=== PATIENT | male | born 1940 | race Caucasian/White ===

== ENCOUNTER → 2024-01-07 16:21 | Outpatient (REF) | payer MEDICARE, OTHER, SELFPAY ==
[2024-01-07 19:49] LABS: PSA, Total - Diagnostic < 0.06 ng/ml (0.0-4.0)
[2024-01-07 19:52] LABS: Testosterone, Total 9.3 ng/dl (72-623)
== END ==
LOC: REG 16:21
PROVIDERS: ATTENDING PHYSICIAN Specialist; FAMILY PHYSICIAN Family Medicine
DX: C61 Malignant neoplasm of prostate (principal)
CPT/HCPCS: 36415; 84153; 84403

== ENCOUNTER 2024-02-24 06:05 | Emergency (ER) | payer OTHER, SELFPAY ==
[2024-02-24 06:09] VITALS: BP 170/84; BMI 24.3
[2024-02-24 06:25] LABS: % Immature Granulocytes 0.3 % (0-0.5); % Lymphocytes 23.7 % (20.5-51.1); % Monocytes 12.7 % (1.7-9.3); % Neutrophils 57.3 % (42.2-75.2); Absolute Basophils 0.1 10^3/uL (0-0.2); Absolute Eosinophils 0.3 10^3/uL (0-0.7); Absolute Lymphocytes 1.4 10^3/uL (1.2-3.4); Absolute Monocytes 0.8 10^3/uL (0.1-0.6); Absolute Neutrophils 3.4 10^3/uL (1.4-6.5); Hematocrit 35.2 % (39.0-52.0); Hemoglobin 12.2 g/dL (13.0-18.0); Mean Corp Hgb Conc. 34.7 g/dL (33.0-37.0); Mean Corpuscular Hgb 32.4 pg (27.0-31.0); Mean Corpuscular Volume 93.4 fL (80.0-94.0); Mean Platelet Volume 10.3 fL (7.4-10.4); Nucleated Red Blood Cells % 0 % (-); Platelet Count 163 10^3/uL (130-400); Red Blood Cell Count 3.77 10^6/uL (4.70-6.10); Red Cell Dist. Width 13.5 % (11.5-14.5)
[2024-02-24 06:43] LABS: ALT (SGPT) 12 U/L (0-50); AST (SGOT) 19 U/L (17-59); Albumin 3.8 g/dl (3.5-5.0); Alkaline Phosphatase 94 U/L (38-126); Blood Urea Nitrogen 24 mg/dl (9-20); Calcium 9.6 mg/dl (8.4-10.2); Carbon Dioxide 30 mmol/L (22-30); Chloride 105 mmol/L (98-107); Estimated Creatinine Clearance 43 ml/min; Glucose 99 mg/dl (70-99); Potassium 4.5 mmol/L (3.5-5.1); Sodium 138 mmol/L (135-145); Total Bilirubin 0.6 mg/dl (0.2-1.3); Total Protein 5.6 g/dl (6.3-8.2); eGFR > 60.00
[2024-02-24 07:00] VITALS: BP 171/79
--- NOTE | 2024-02-24 07:28 | ED.GENMED ---
History of Present Illness
General
Chief Complaint: Weakness
Source: patient
Exam Limitations: none
Time Seen by Provider: 02/24/24 07:03
Travel History
Have you had any contact with someone who has COVID-19?: No
Do you have any symptoms of coronavirus? Fever > 100 degrees, chills, cough, shortness of breath, sore throat, loss of taste or smell, muscle aches, or headache?: No
History of Present Illness
History of Present Illness:
84-year-old male presents via EMS from home. He states his called because patient was unable to get out of bed this morning. He has a history of non-Hodgkin's lymphoma, Waldenstr�m's macroglobulinemia, A-fib, sick sinus syndrome with
pacemaker on Eliquis. Patient has very vague history no specific complaints. He states he does not feel as bad at the time of my exam. He notes an ongoing swollen and ecchymotic left upper arm that he has been evaluated by. He states he had an
ultrasound of his arm. He states this is not a new issue. He denies associated chest pain or shortness of breath. Patient has hard time describing how he is feeling in general.
Past History
Past History
ED Past Medical History: Arrthythmia (afib), GERD, HTN, Other (nonhodgkins lymphoma) and Other (diverticulitis)
ED Past Surgical History: Cardiac, Orthopedic and Tonsilectomy
Social History
Tobacco: Non-smoker
Personal:
Living: with family
Phy Exam
Physical Exam
Physical Exam:
General: Well-appearing male no acute respiratory distress
HEENT: Normocephalic atraumatic
Heart: Regular rate and rhythm
Lungs: Clear no wheeze
Abdomen soft nontender nondistended
Extremities: Significant edema and discoloration of the left arm. He has a 2+ radial pulse to the left wrist
Neurologic: Good sensation left arm
Skin: Abrasion noted to the dorsal aspect of the right foot with mild surrounding erythema. There is mild soft tissue swelling noted of the dorsal right foot.
Course
Orders/Labs/Results
Orders:
Orders
02/24/24 06:15
Complete Blood Count/With Diff Urgent
Comprehensive Metabolic Panel Urgent
02/24/24 07:32
Electrocardiogram (*1) Urgent
Reason for Study: Fatigue / Weakness
EKG- Treatment ONCE
02/24/24 07:54
Interrogate Pacemaker- Treatment ONCE
02/24/24 08:16
Urinalysis Reflex To Culture Urgent
Date Specimen was Collected: 02/24/24
Time Specimen was Collected: 08:14
Abnormal Lab Results
02/24/24
06:15
RBC 3.77 L 10^6/uL
(4.70-6.10)
Hgb 12.2 L g/dL
(13.0-18.0)
Hct 35.2 L %
(39.0-52.0)
MCH 32.4 H pg
(27.0-31.0)
Absolute Monos (auto) 0.8 H 10^3/uL
(0.1-0.6)
Monocytes % 12.7 H %
(1.7-9.3)
BUN 24 H mg/dl
(9-20)
Total Protein 5.6 L g/dl
(6.3-8.2)
02/24/24 06:15
02/24/24 06:15
Vital Signs
Initial and Last Documented VS:
Initial Vital Signs
Temp Pulse Resp BP Pulse Ox
98.1 F 78 16 170/84 98
02/24/24 06:09 02/24/24 06:09 02/24/24 06:09 02/24/24 06:09 02/24/24 06:09
Last Documented Vital Signs
Temp Pulse Resp BP Pulse Ox
98.1 F 69 15 131/99 100
02/24/24 06:09 02/24/24 08:23 02/24/24 08:23 02/24/24 08:00 02/24/24 08:15
MDM/Problems Addressed
Differential Diagnosis Includes:
Patient presents with vague complaints of just not feeling well this morning. No specific complaint on my exam. He states he feels okay. He states if he felt like this at home he would not of come to the hospital. Discussed with the patient is
significantly swollen and discolored but the left arm and offered ultrasound however he he states he already had 1 this was negative. He has been on Eliquis. Basic labs pending. Will check urinalysis and EKG.
*Critical Care Note
Total Time (30-74mins, 75-104mins- exclusive of procedures): Not Applicable
Update Note
Update Note:
Workup unremarkable here with labs without significant finding. Urinalysis negative. Did interrogate pacemaker which showed 100% atrial fibrillation but is rate controlled. Family now in the room. The patient's son accompanies him. I also spoke
with the patient's son over the telephone who is a physician in [place]. They did relay that the patient, their father, is getting more and more confused as he is his . They seem to get into the cycles at home where something seems wrong to
them and they called 911. They are in discussion with each other about getting the parents please. At this time no indication medically for admission to hospital. Family and patient in agreement with discharge home. Stable for discharge
ED Attending Note
-
Portions of this chart may have been created with voice recognition software.� Occasional wrong word or��sound alike� substitutions may have occurred due to the inherent limitations of voice recognition software.
Discharge Plan
Departure
Patient Disposition: Home (Routine Discharge)
Date of Disposition: 02/24/24
Time of Disposition: 09:19
Patient with high blood pressure during this ER visit?: No
Discharge Problem:
Weakness
Instructions: Generalized Weakness (DC)
Prescriptions:
No Action
famotidine 40 MG tablet
40 mg PO DAILY
tamsulosin 0.4 MG capsule
0.4 mg PO DAILY
metoprolol succinate 25 MG tablet extended release 24 hr
25 mg PO DAILY
multivitamin 1 EACH tablet
1 ea PO DAILY
digoxin [Digitek] 0.25 MG tablet
0.125 mg PO DAILY
Eliquis 5 MG tablet
5 mg PO BID Qty: 0 0RF
Hold Instructions: Resume on 05/22/22. Until hematuria resolves
acetaminophen 500 mg Tablet
1,000 mg PO Q6H PRN (Reason: pain)
Brukinsa 80 mg Capsule
160 mg PO BID
Hold Instructions: Resume on 05/22/22. Until hematuria resolves
phenazopyridine 200 mg tablet
200 mg PO TID 7 Days Qty: 30 0RF
Referrals:
UNKNOWN - PT NOT,INTERVIEWE [Family Provider] -
Activity Restrictions/Additional Instructions:
Please return here for worsening symptoms
Interventions
Interventions:
*Risk Screen - Suicide Last Done: 02/24/24 06:09
*General Assessment Last Done: 02/24/24 06:09
*Neglect/Abuse Screening Last Done: 02/24/24 06:09
ED- Fall Risk Assessment Last Done: 02/24/24 07:51
*ED COVID-19 Vaccine History Last Done: 02/24/24 06:09
ED- Cardiac Assessment Last Done: 02/24/24 06:19
ED- Neurological Assessment Last Done: 02/24/24 06:19
ED- Pulmonary Assessment Last Done: 02/24/24 06:19
Discharge Date and Time
Print Language: HUNGARIAN
[2024-02-24 08:00] VITALS: BP 131/99
[2024-02-24 08:30] LABS: Urine Albumin Negative (Neg - Trace); Urine Bilirubin Negative (Negative); Urine Character Clear (Clear); Urine Color Yellow; Urine Glucose Negative (Negative); Urine Ketone Negative (Negative); Urine Leukocyte Negative (Negative); Urine Nitrite Negative (Negative); Urine Occult Blood Negative (Negative); Urine Specific Gravity 1.015 (<1.030); Urine Urobilinogen Negative (Neg - 1+)
== END 2024-02-24 09:48 | disposition home or self-care (01) ==
LOC: EMR 06:05
PROVIDERS: Physician Assistant; EMERGENCY PHYSICIAN Emergency Medicine
DX: R53.1 Weakness (principal); S90.811A Abrasion, right foot, initial encounter; R53.83 Other fatigue; L98.8 Other specified disorders of the skin and subcutaneous tissue; R60.0 Localized edema; R58 Hemorrhage, not elsewhere classified; X58.XXXA Exposure to other specified factors, initial encounter; I48.91 Unspecified atrial fibrillation; I49.5 Sick sinus syndrome; I10 Essential (primary) hypertension; K21.9 Gastro-esophageal reflux disease without esophagitis; C88.0 Waldenstrom macroglobulinemia; K57.92 Diverticulitis of intestine, part unspecified, without perforation or abscess without bleeding; Z95.0 Presence of cardiac pacemaker; Z85.72 Personal history of non-Hodgkin lymphomas; Z79.01 Long term (current) use of anticoagulants
CPT/HCPCS: 99283; 93288; 80053; 81003; 85025; 93005

== ENCOUNTER 2024-04-14 13:15 | Emergency (ER) | payer OTHER, SELFPAY ==
[2024-04-14 13:19] VITALS: BP 148/97
--- NOTE | 2024-04-14 15:21 | ED.GENMED ---
History of Present Illness
General
Chief Complaint: Fall
Time Seen by Provider: 04/14/24 13:37
History of Present Illness
History of Present Illness:
84-year-old male with history of dementia presenting from nursing facility for fall. Fall was allegedly unwitnessed. Patient is limited historian, however reports that he fell out of bed. He does not believe that he hit his head. He denies
prodromal symptoms such as dizziness or chest pain. He notes that he has fallen in the past. He reports some pain in the buttock region, however has been able to ambulate. Denies any chest pain or difficulty breathing. Denies abdominal pain.
Denies any headache or neck pain. Denies hip pain. Denies additional acute medical complaints.
Past History
Past History
ED Past Medical History: Arrthythmia (afib), GERD, HTN, Other (nonhodgkins lymphoma) and Other (diverticulitis)
ED Past Surgical History: Cardiac, Orthopedic and Tonsilectomy
Social History
Tobacco: Non-smoker
Personal:
Living: with family
Phy Exam
Physical Exam
Physical Exam:
General: Well-appearing, no clinical signs of dehydration, nontoxic and in no acute distress
HEENT: protecting airway
Head: No signs of head trauma
Neck: appears supple, no tenderness to the cervical spine
CV: Normal heart rate, regular rhythm, no evidence of cyanosis
Resp: No accessory muscle use, no increased work of breathing, lungs clear to auscultation bilaterally
Abd: Soft and non-distended, no tenderness to palpation, normal bowel sounds
Extremities: No deformities, no swelling, no erythema, pulses and sensation intact. No tenderness to midline spine. Pelvis stable
Neuro: alert, no focal neurologic deficit
: deferred
Rectal: deferred
Psych: Normal affect
Skin: Intact
Course
Orders/Labs/Results
Orders:
Orders
04/14/24 14:09
CT Cervical Spine W/o Iv Contr Urgent
Comment:
Reason For Exam: unwitnessed fall
CT Head W/o Iv Contrast Urgent
Comment:
Reason For Exam: fall on thinner
Pelvis, 1 or 2 Views CR [CR Pelvis - 1 Or 2 Views ] Urgent
Comment:
Reason For Exam: fall, buttock pain
Vital Signs
Initial and Last Documented VS:
Initial Vital Signs
Temp Pulse Resp BP Pulse Ox
98.8 F 96 18 148/97 98
04/14/24 13:19 04/14/24 13:19 04/14/24 13:19 04/14/24 13:19 04/14/24 13:19
Last Documented Vital Signs
Temp Pulse Resp BP Pulse Ox
98.8 F 96 18 148/97 98
04/14/24 13:19 04/14/24 13:19 04/14/24 13:19 04/14/24 13:19 04/14/24 13:19
MDM/Problems Addressed
MDM/Problems Addressed:
84-year-old male with history of dementia and A-fib with anticoagulation on Eliquis presenting after an unwitnessed fall. Vital signs on arrival are normal.
On exam, patient well-appearing, no acute distress or discomfort. Patient reports some buttock pain, otherwise no acute complaints. He reports that he fell out of bed, otherwise limited historian. Denies any prodromal or syncopal symptoms.
Suspect mechanical in nature. No signs of trauma. Benign cardiac, pulmonary, abdominal exam. Pelvis is stable, moving all extremities equally. Given anticoagulation status, will screen with CT brain and C-spine and pelvis x-ray.
*Critical Care Note
Total Time (30-74mins, 75-104mins- exclusive of procedures): Not Applicable
ED Attending Note
-
Portions of this chart may have been created with voice recognition software.� Occasional wrong word or��sound alike� substitutions may have occurred due to the inherent limitations of voice recognition software.
Discharge Plan
Departure
Prescriptions:
No Action
famotidine 40 MG tablet
40 mg PO DAILY
tamsulosin 0.4 MG capsule
0.4 mg PO DAILY
metoprolol succinate 25 MG tablet extended release 24 hr
25 mg PO DAILY
multivitamin 1 EACH tablet
1 ea PO DAILY
digoxin [Digitek] 0.25 MG tablet
0.125 mg PO DAILY
Eliquis 5 MG tablet
5 mg PO BID Qty: 0 0RF
acetaminophen 500 mg Tablet
1,000 mg PO Q6H PRN (Reason: pain)
Brukinsa 80 mg Capsule
160 mg PO BID
phenazopyridine 200 mg tablet
200 mg PO TID 7 Days Qty: 30 0RF
Referrals:
Mariah Shin MD [Family Provider] -
Interventions
Interventions:
*Risk Screen - Suicide Last Done: 04/14/24 13:19
*General Assessment Last Done: 04/14/24 13:19
*Neglect/Abuse Screening Last Done: 04/14/24 13:19
*ED COVID-19 Vaccine History Last Done: 04/14/24 14:09
ED-Musculoskeletal Assessment Last Done: 04/14/24 14:03
ED- Neurological Assessment Last Done: 04/14/24 14:03
ED-Skin Assessment Last Done: 04/14/24 14:03
Discharge Date and Time
Print Language: CROATIAN
== END 2024-04-14 17:56 | disposition home or self-care (01) ==
LOC: EMR 13:15
PROVIDERS: EMERGENCY PHYSICIAN Student in an Organized Health Care Education/Training Program; FAMILY PHYSICIAN Family Medicine
DX: S39.92XA Unspecified injury of lower back, initial encounter (principal); M54.50 Low back pain, unspecified; W06.XXXA Fall from bed, initial encounter; Y92.89 Other specified places as the place of occurrence of the external cause; F03.90 Unspecified dementia, unspecified severity, without behavioral disturbance, psychotic disturbance, mood disturbance, and anxiety; I48.91 Unspecified atrial fibrillation; K21.9 Gastro-esophageal reflux disease without esophagitis; I10 Essential (primary) hypertension; Z79.01 Long term (current) use of anticoagulants; Z85.72 Personal history of non-Hodgkin lymphomas; Z91.81 History of falling
CPT/HCPCS: 99284; 70450; 72125; 72170

== ENCOUNTER 2024-04-21 08:26 | Emergency (ER) | payer OTHER, SELFPAY ==
[2024-04-21 08:29] VITALS: BP 145/93
--- NOTE | 2024-04-21 08:46 | ED.GENMED ---
History of Present Illness
General
Chief Complaint: Fall
Source: patient and ambulance crew
Time Seen by Provider: 04/21/24 08:28
History of Present Illness
History of Present Illness:
84-year-old male with past medical history of memory impairment, atrial fibrillation, hypertension, hyperlipidemia presenting to the ER from [facility] after patient was found lying on the ground during a well check. Patient was reportedly
fine at 5 AM during first wellness check but at 815 was when he was found on the ground. Patient is unable to give much history about the fall secondary to his baseline mental status. He has no other concerns at this time. Of note, patient was
seen in the ER for similar just 1 week ago.
Past History
Past History
ED Past Medical History: Arrthythmia (afib), GERD, HTN, Other (nonhodgkins lymphoma) and Other (diverticulitis)
ED Past Surgical History: Cardiac, Orthopedic and Tonsilectomy
Social History
Tobacco: Non-smoker
Alcohol: None
Drug: None
Personal:
Living: assisted
Review of Systems
Review of Systems
All Other Systems: ROS reviewed and negative except as documented in HPI and ROS
Phy Exam
Physical Exam
Physical Exam:
GENERAL: Alert , in no apparent distress
HEAD: NCAT
EYE: conjunctiva clear
NECK: Supple
ENT: o/p clr, mmm.
LUNGS: Clear breath sounds bilaterally, no acute respiratory distress, no wheezes/rales/rhonchi
NEUROLOGICAL: Alert and oriented
SKIN: Warm and dry, skin intact.
MUSCULOSKELETAL: well perfused. edema to left upper extremity is baseline per EMS
PSYCH: Normal and appropriate interaction.
Scores
Heart Failure Risk
Heart Failure Risk Score: Not Applicable
Heart Score for Chest Pain Patients
STEMI patient?: Not applicable
Withdrawal Assessment of Alcohol
Withdrawal Assessment Completed?: Not applicable
Course
Orders/Labs/Results
Orders:
Orders
04/21/24 08:29
CT Head W/o Iv Contrast Urgent
Comment:
Reason For Exam: fall, eliquis, dementia
Vital Signs
Initial and Last Documented VS:
Initial Vital Signs
Temp Resp
98.7 F 18
04/21/24 08:27 04/21/24 08:27
Last Documented Vital Signs
Temp Pulse Resp BP Pulse Ox
98.7 F 91 18 136/83 94
04/21/24 08:27 04/21/24 08:29 04/21/24 08:27 04/21/24 09:00 04/21/24 09:15
MDM/Problems Addressed
Differential Diagnosis Includes:
Mechanical trip and fall, intracranial bleeding, minor head injury
MDM/Problems Addressed:
84-year-old male with past medical history of dementia presenting the emergency department for evaluation after an unwitnessed fall, found on the ground at his memory care unit. Seen in the ER for similar 1 week ago. Patient is anticoagulated on
Eliquis. Will order head CT for further evaluation. Patient is otherwise resting comfortably and in no acute distress.
Chronic conditions affecting care: Arrhythmia
*Radiology
Radiology exam reviewed: radiology read reviewed
*Pulse Oximetry
Patient hypoxic: no
*Critical Care Note
Total Time (30-74mins, 75-104mins- exclusive of procedures): Not Applicable
Data Reviewed
Review of Other/Old Records Reveals: Records and Radiology Studies
Source: records and ambulance crew
Patient Management
Escalation/DeEscalation of care consider admission/obs:
Patient's head CT shows the following:
IMPRESSION:
1. 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
2. Severe white matter leukoaraiosis in both cerebral hemispheres.
3. Mild to moderate diffuse cerebral and cerebellar volume loss.
4. SEVERE ACUTE on CHRONIC LEFT SPHENOID SINUSITIS.
Patient remains hemodynamically stable in no acute distress. He is stable for discharge back to his assisted. Will arrange for transport service
ED Attending Note
-
Portions of this chart may have been created with voice recognition software.� Occasional wrong word or��sound alike� substitutions may have occurred due to the inherent limitations of voice recognition software.
Discharge Plan
Departure
Patient Disposition: Penitentiary/SNF
Date of Disposition: 04/21/24
Time of Disposition: 10:13
Discharge Problem:
Accidental fall
Instructions: Preventing falls in adults
Prescriptions:
No Action
famotidine 40 MG tablet
40 mg PO DAILY
tamsulosin 0.4 MG capsule
0.4 mg PO DAILY
metoprolol succinate 25 MG tablet extended release 24 hr
25 mg PO DAILY
multivitamin 1 EACH tablet
1 ea PO DAILY
digoxin [Digitek] 0.25 MG tablet
0.125 mg PO DAILY
Eliquis 5 MG tablet
5 mg PO BID Qty: 0 0RF
acetaminophen 500 mg Tablet
1,000 mg PO Q6H PRN (Reason: pain)
Brukinsa 80 mg Capsule
160 mg PO BID
phenazopyridine 200 mg tablet
200 mg PO TID 7 Days Qty: 30 0RF
Referrals:
Mariah Shin MD [Family Provider] -
Interventions
Interventions:
ED-Musculoskeletal Assessment Last Done: 04/21/24 09:38
ED- Neurological Assessment Last Done: 04/21/24 09:38
ED-Skin Assessment Last Done: 04/21/24 09:38
Discharge Date and Time
Print Language: TURKISH
[2024-04-21 09:00] VITALS: BP 136/83
== END 2024-04-21 12:01 ==
LOC: EMR 08:26
PROVIDERS: EMERGENCY PHYSICIAN Student in an Organized Health Care Education/Training Program; FAMILY PHYSICIAN Family Medicine
DX: S09.90XA Unspecified injury of head, initial encounter (principal); W19.XXXA Unspecified fall, initial encounter; G93.89 Other specified disorders of brain; J32.3 Chronic sphenoidal sinusitis; F03.90 Unspecified dementia, unspecified severity, without behavioral disturbance, psychotic disturbance, mood disturbance, and anxiety; I10 Essential (primary) hypertension; E78.5 Hyperlipidemia, unspecified; I48.91 Unspecified atrial fibrillation; K57.92 Diverticulitis of intestine, part unspecified, without perforation or abscess without bleeding; K21.9 Gastro-esophageal reflux disease without esophagitis; Z79.01 Long term (current) use of anticoagulants; Z85.72 Personal history of non-Hodgkin lymphomas
CPT/HCPCS: 99284; 70450

== ENCOUNTER 2024-04-29 21:35 | Inpatient (IN) | payer OTHER, SELFPAY ==
[2024-04-29] VITALS (8 sets, daily range): BP systolic 145–156; BP diastolic 78–94
--- NOTE | 2024-04-29 18:17 | ED.GENMED ---
History of Present Illness
General
Chief Complaint: Change in Mental Status
Source: ambulance crew
Exam Limitations: altered mental status
Time Seen by Provider: 04/29/24 18:07
History of Present Illness
History of Present Illness:
84yoM with a history of atrial fibrillation on Eliquis, Waldenstrom macroglobulemia, hypertension, hyperlipidemia, sick sinus syndrome s/p pacemaker presenting via EMS from [facility] for evaluation of altered mental status. Patient is
confused on arrival and is unable to provide any meaningful history. History is provided by EMS as well as nurse Cam at [place]. Patient entered [facility] on 04/09/24. He was able to ambulate the first two days after entering the facility
but has been having difficulty with ambulating since. He has been seen twice in the ED this month for falls. He started to develop a cough last week. He had a CXR done on 04/25/24 which showed 'Significant right upper lobe pneumonia and left lower
lobe pleural-parenchymal disease.' Augmentin and doxycycline were ordered today to be started tomorrow. Per half-way staff, he started to become very confused and was not acting himself starting today. Patient is typically able to hold a
conversation and remembers the code to visit his in the memory care unit. Today, patient seemed lethargic and was not talking much. Patient states 'guys are following me' but is unable to provide any further details.
Past History
Past History
ED Past Medical History: Arrthythmia (afib), GERD, HTN, Other (nonhodgkins lymphoma) and Other (diverticulitis)
ED Past Surgical History: Cardiac, Orthopedic and Tonsilectomy
Social History
Tobacco: Non-smoker
Alcohol: None
Drug: None
Personal:
Living: half-way
Phy Exam
Physical Exam
Physical Exam:
Patient fatigued, non-toxic
General Physical Exam
General Skin: warm and dry
General Habitus: elderly and frail
Cardiovascular Exam
Cardiovascular Exam: regular rate/rhythm
Pulmonary Exam
Pulmonary Exam: no respiratory distress and other (Rhonchi noted with bibasilar rales. +Wet cough. Pulmonary effort is normal)
Gastrointestinal Exam
Gastrointestinal Exam: non tender, soft and non distended
Neurological Exam
Neurological Exam: other (Oriented to person. Able to state he was in an ambulance. Unable to state the year. )
Musculoskeletal Exam
Musculoskeletal Exam: other (L arm lymphedema noted)
Skin Exam
Skin Exam: normal color and warm/dry
Course
Orders/Labs/Results
Orders:
Orders
04/29/24 18:13
Electrocardiogram (*1) Urgent
Reason for Study: Shortness of Breath
CXR2 [CR Chest - 2 Views ] Urgent
Comment:
Reason For Exam: PNA dx, shortness of breath, hypoxia
04/29/24 18:14
CT Head W/o Iv Contrast Urgent
Comment:
Reason For Exam: change in mental status
EKG- Treatment ONCE
04/29/24 18:18
COVID-19 Antigen Urgent
Source: Nasal Swab
Complete Blood Count/With Diff Urgent
Comprehensive Metabolic Panel Urgent
Lactate Level [Lactic Acid] Urgent
Troponin I Urgent
Influenza A+B Rapid Molecular Urgent
RITESH Source: Nasal Swab
Specimen Description:
04/29/24 18:23
Urinalysis Reflex To Culture Urgent
04/29/24 18:45
Add On- LAB Urgent
Tests Added?: Procalcitonin
04/29/24 19:07
Procalcitonin Urgent
PCT Algorithmm Indication: Respiratory
04/29/24 19:32
CefTRIAXone [Rocephin] 2,000 mg IV NOW STA
04/29/24 19:38
Sterile Water [Sterile Water For Injection] [address] ml .[address]
04/29/24 21:03
Legionella Urinary Antigen Urgent
RITESH Source: Urine
Specimen Description:
MRSA Screen Routine
RITESH Source: Nose
Specimen Description:
Sputum Culture [Respiratory Culture/Gram Stain] Urgent
RITESH Source: Sputum
Specimen Description:
Strep pneumoniae Antigen Urgent
RITESH Source: Urine
Specimen Description:
Dexamethasone Sod Phosphate [Decadron] 6 mg IV NOW STA
04/29/24 21:11
Admit/Transfer Patient As Directed
Co-Sign Provider:
Level of Care: Inpatient admission
Assign to:: Medical/Surgical
Physician / Group: Kelin
Diagnosis: Pneumonia, COVID+
Reason for Hospitalization: IV abx
Expected length of stay greater than two midnights?: Yes
ELOS- Estimated Length of Stay in days: 3
I certify the patient meets the requirements for IP care: Yes
04/29/24 21:12
PRN Pain Medication Management As Directed
May give lesser potent ordered pain med per pt: Yes
preference::
Protocol:: Medication orders for pain may be administered in a
manner that supports deferring to patient preference
when the pt is:
- Requesting an ordered lesser potent pain medication.
Least to most potent pain medications are defined
as: acetaminophen < NSAID < tramadol < opioids
(morphine, oxycodone, hydromorphone).
- Requesting a lesser dose of the same medication IF
ORDERED.
- Requesting a less intrusive route of administration
if both routes are prescribed by the provider (PO <
IV).
04/29/24 21:13
Code Status As Directed
Resuscitation Status: Full Code
Abnormal Lab Results
04/29/24
18:18
RBC 3.95 L 10^6/uL
(4.70-6.10)
Hgb 12.4 L g/dL
(13.0-18.0)
Hct 36.0 L %
(39.0-52.0)
MCH 31.4 H pg
(27.0-31.0)
Abs Immat Gran (auto) 0.1 H 10^3/uL
(0-0.05)
Absolute Neuts (auto) 7.0 H 10^3/uL
(1.4-6.5)
Absolute Lymphs (auto) 1.0 L 10^3/uL
(1.2-3.4)
Immature Gran % 0.6 H %
(0-0.5)
Neutrophils % 80.3 H %
(42.2-75.2)
Lymphocytes % 11.0 L %
(20.5-51.1)
Carbon Dioxide 31 H mmol/L
(22-30)
BUN 30 H mg/dl
(9-20)
Glucose 114 H mg/dl
(70-99)
Albumin 3.4 L g/dl
(3.5-5.0)
SARS-CoV-2 Antigen Positive A
(Negative)
04/29/24 18:18
04/29/24 18:18
Vital Signs
Initial and Last Documented VS:
Initial Vital Signs
Temp Pulse Resp Pulse Ox
99.5 F 95 18 95
04/29/24 18:09 04/29/24 18:09 04/29/24 18:09 04/29/24 18:09
Last Documented Vital Signs
Temp Pulse Resp BP Pulse Ox
99.5 F 99 22 147/78 92
04/29/24 18:09 04/29/24 22:30 04/29/24 22:30 04/29/24 22:00 04/29/24 22:30
MDM/Problems Addressed
Differential Diagnosis Includes:
84yoM here with AMS. Recently diagnosed with pneumonia but not started on abx. Patient unable to provide history. He is oriented to time only. He is ill appearing but non-toxic. Rhonchi noted on lung exam. No respiratory distress noted. Vitals
stable. Differential diagnosis includes but is not limited to: sepsis, pneumonia, COVID, metabolic encephalopathy, UTI
Initial ED plan: Check CBC, CMP, lactate, troponin/EKG, COVID swab, CXR, and CT head.
*EKG
Interpreted by ED Provider?: Yes
EKG Intrepretation Date: 04/29/24
Heart Rate: 105
Rate: tachycardiac
Rhythm: a-fib
[place]: normal axis
Ischemia: non-specific ST changes
*Critical Care Note
Total Time (30-74mins, 75-104mins- exclusive of procedures): Not Applicable
Update Note
Update Note:
Patient is COVID positive. White count and lactate normal. CXR shows severe multifocal pneumonia. CT head is negative for acute findings. Patient given IV Rocephin and was admitted for further management.
ED Attending Note
-
Portions of this chart may have been created with voice recognition software.� Occasional wrong word or��sound alike� substitutions may have occurred due to the inherent limitations of voice recognition software.
Discharge Plan
Departure
Patient Disposition: Admit
Date of Disposition: 04/29/24
Time of Disposition: 20:43
Presentation/result/management discussed w/ accepting MD/DO: Hospitalist
Discharge Problem:
Multifocal pneumonia, COVID-19, Altered mental status
Interventions
Interventions:
*Risk Screen - Suicide Last Done: 04/29/24 18:10
*General Assessment Last Done: 04/29/24 18:10
*Neglect/Abuse Screening Last Done: 04/29/24 18:10
ED- Fall Risk Assessment Last Done: 04/29/24 21:44
*ED COVID-19 Vaccine History Last Done: 04/29/24 18:10
*Nursing Disposition Last Done: 04/29/24 21:44
ED- Pulmonary Assessment Last Done: 04/29/24 21:44
ED-Psychological Assessment Last Done: 04/29/24 21:44
ED- Neurological Assessment Last Done: 04/29/24 18:11
ED- Cardiac Assessment Last Done: 04/29/24 21:44
[2024-04-29 18:32] LABS: % Basophils 0.2 % (0-2); % Eosinophils 0.6 % (0-6); % Immature Granulocytes 0.6 % (0-0.5); % Monocytes 7.3 % (1.7-9.3); % Neutrophils 80.3 % (42.2-75.2); Absolute Eosinophils 0.1 10^3/uL (0-0.7); Absolute Immature Granulocytes 0.1 10^3/uL (0-0.05); Absolute Monocytes 0.6 10^3/uL (0.1-0.6); Hemoglobin 12.4 g/dL (13.0-18.0); Mean Corp Hgb Conc. 34.4 g/dL (33.0-37.0); Mean Corpuscular Hgb 31.4 pg (27.0-31.0); Mean Corpuscular Volume 91.1 fL (80.0-94.0); Mean Platelet Volume 10.2 fL (7.4-10.4); Nucleated Red Blood Cells % 0 % (-); Platelet Count 328 10^3/uL (130-400); Red Blood Cell Count 3.95 10^6/uL (4.70-6.10); Red Cell Dist. Width 13.4 % (11.5-14.5); White Blood Cell Count 8.8 10^3/uL (4.8-10.8)
[2024-04-29 18:34] LABS: COVID-19 Antigen Positive (Negative)
[2024-04-29 18:41] LABS: ALT (SGPT) 18 U/L (0-50); AST (SGOT) 25 U/L (17-59); Albumin 3.4 g/dl (3.5-5.0); Alkaline Phosphatase 81 U/L (38-126); Blood Urea Nitrogen 30 mg/dl (9-20); Calcium 9.3 mg/dl (8.4-10.2); Carbon Dioxide 31 mmol/L (22-30); Chloride 104 mmol/L (98-107); Glucose 114 mg/dl (70-99); Potassium 3.7 mmol/L (3.5-5.1); Sodium 145 mmol/L (135-145); Total Bilirubin 1.1 mg/dl (0.2-1.3); Total Protein 6.7 g/dl (6.3-8.2); eGFR > 60.00
[2024-04-29 18:51] LABS: Troponin I < 0.012 ng/ml
[2024-04-29] MEDS: ROCEPHIN 2000 MG IV (19:40)
[2024-04-29 19:41] LABS: Procalcitonin 0.16 ng/ml (0.0-0.25)
--- NOTE | 2024-04-29 21:03 | HPS.HSE ---
Family Physician
-
Family Physician: INTERVIEWE UNKNOWN - PT NOT
Chief Complaint
-
Lethargy
History of Present Illness
Patient is a 84 y/o male past medical history of Waldenstrom Macroglobulinemia, and paroxysmal atrial fibrillation who presents with lethargy. Patient is unable to provide any additional history at this point in time. Patient was diagnosed with
pneumonia several days ago after he developed a cough about a week ago. Patient was scheduled to start antibiotics today. Today staff noted patient to more lethargic and they sent him to be the emergency department for evaluation.
Medical History
Past Medical History
Past Medical History: Reports Other
Additional Past Medical History:
Paroxysmal Atrial Fibrillation
Sick Sinus Syndrome s/p Pacemaker
Essential Hypertension
Waldenstrom Macroglobulinemia
Depression
BPH
GERD
CVA
Past Surgical History: Reports Other
Additional Past Surgical History:
TURP
Bilateral Cataract
Left Knee Meniscus Repair
Tonsillectomy
Permanent Pacemaker
Social History
Tobacco: Non-smoker
Living: Assisted Living
Family History
Family History: Not pertinent
Allergies / Home Medications
Allergies reflects when Allergies were last updated in [facility].
Home Medications with original date entered in [facility]
Allergy/Medication List:
Allergies
Allergy/AdvReac Type Severity Reaction Status Date / Time
No Known Allergies Allergy Verified 04/14/24 13:19
Home Medications
famotidine 40 mg tablet 40 mg PO DAILY Gastrointestinal issue 08/29/12
L.acidophilus-L.plantarum-B.animalis-B.longum 2 billion cell capsule (Probiotic Acidophilus Beads) 1 cap PO DAILY 04/29/24
amoxicillin 875 mg-potassium clavulanate 125 mg tablet 1 tab PO BID 04/29/24
apixaban 2.5 mg tablet (Eliquis) 2.5 mg PO BID 04/29/24
doxycycline hyclate 100 mg capsule 100 mg PO BID 04/29/24
fluoxetine 10 mg tablet 10 mg PO DAILY 04/29/24
guaifenesin 100 mg/5 mL oral liquid (Chest Congestion Relief) 200 mg PO Q6HPRN PRN cough 04/29/24
loperamide 2 mg tablet (Anti-Diarrheal (loperamide)) 2 mg PO QIDPRN PRN diarrhea 04/29/24
loratadine 10 mg tablet 10 mg PO DAILY 04/29/24
metoprolol succinate 50 mg tablet,extended release 24 hr 50 mg PO DAILY 04/29/24
pirtobrutinib 100 mg tablet (Jaypirca) 200 mg PO DAILY@0600 04/29/24
Review of Systems
-
Unable to obtain full review of systems at this time due to: Acuity
Physical Exam
Vital Signs
Vital Signs
Temp Pulse Resp BP Pulse Ox
99.5 F 88 22 155/92 91
04/29/24 18:09 04/29/24 19:45 04/29/24 19:45 04/29/24 19:00 04/29/24 19:45
Physical Exam
General: Well Developed, Well Nourished and No Apparent Distress
HEENT: Anicteric and Other (Face mask in place)
Respiratory: Rhonchi (Bilateral) and Non Labored Respirations
Cardiac: S1/S2 and Regular Rhythm
GI: Soft and Non Tender
Rectal: Deferred by Provider
Musculoskeletal: No Clubbing, No Cyanosis and No Edema
Skin: Warm and Dry
Neuro: Other (Unable to participate in neurologic evaluation due to lethargy)
Laboratory Results
-
04/29/24 18:18
04/29/24 18:18
Laboratory Results
Lactic Acid 2.0 mmol/L (0.7-2.0) 04/29/24 18:18
Total Bilirubin 1.1 mg/dl (0.2-1.3) 04/29/24 18:18
AST 25 U/L (17-59) 04/29/24 18:18
ALT 18 U/L (0-50) 04/29/24 18:18
Alkaline Phosphatase 81 U/L (38-126) 04/29/24 18:18
Troponin I < 0.012 ng/ml 04/29/24 18:18
Data Reviewed
-
Diagnostic Radiology: Report Reviewed by me
CT Scan: Report Reviewed by me
Lab Data: Labs Reviewed by me
Impression/Plan
-
Severe Multi-Focal Pneumonia secondary to COVID-19
-Cover for bacterial/atypical pneumonia with Zosyn and Doxycycline given history of Waldenstrom macroglobulinemia on kinase inhibitor
-Check strep and legionella antigen, and sputum culture
-Continue Decadron 6mg IV Daily
Paroxysmal Atrial Fibrillation
-Continue Eliquis for anticoagulation
-Continue metoprolol for rate control
Waldenstrom Macroglobulinemia
-Patient maintained on Jaypirca
Depression
-Continue fluoxetine
BPH s/p TURP
-Monitor bladder scan
GERD
-Continue Pepcid
Hx Sick Sinus Syndrome s/p Pacemaker
Hx CVA
DVT proph: Eliquis
Code Status: Full Code
--- NOTE | 2024-04-29 21:07 | W.PN.UPDATE ---
Update Note
Progress Note Update
This is an addendum to the H&P written by Ilana Hernandez on 04/29/2024. Patient seen and examined independently with PA.
84-year-old male past medical history of atrial fibrillation on Eliquis, sick sinus syndrome with pacemaker, Waldenstr�m's macroglobulinemia, hypertension, hyperlipidemia, here from [place] with difficulty ambulating, falls since entering the
facility on 04/09. He had cough since last week and chest x-ray on 04/25 and was ordered antibiotics which she has not started yet. Very lethargic so sent in.
Patient is very poor historian. Bilateral rhonchi on examination. Chest x-ray shows severe multifocal pneumonia. COVID-positive. CT head no acute abnormality. Labs otherwise unremarkable.
Severe multifocal pneumonia secondary to COVID. Treat for bacterial pneumonia given history of Waldenstr�m's macroglobulinemia on kinase inhibitor. Check sputum culture, strep antigen, Legionella antigen, MRSA. Zosyn/doxycycline. Dexamethasone.
Gentle IV fluids.
[2024-04-29] MEDS: DECADRON 6 MG IV (23:04)
[2024-04-30] VITALS (7 sets, daily range): BP systolic 127–158; BP diastolic 76–99; PULSE 85; O2SAT 94
[2024-04-30] MEDS: NSS 1000 IV ×2 (00:52→16:53)
--- NOTE | 2024-04-30 01:00 | PTCARENOTE ---
Received pt from ED into room 2138. Pt pulled over from stretcher to bed. AAOx1. VSS. Trying to participate in admission questions but poor historian. Assessment as documented -see worklist. Red, blanchable area on sacrum, view documentation. NS @
60 ml/hr initiated to R wrist IV. Med sitter and bed alarm initiated for patient safety. Pt has no complaints at this time, sleeping comfortably in bed.
[2024-04-30] MEDS: ZOSYN 50 IV (03:52)
--- NOTE | 2024-04-30 04:16 | DOWNTIME ---
There was a [employer] Downtime on 04/30/2024 from 0100 to 04/30/2024 at 0252. Downtime documentation of patient's care, including medication administrations, has been reconciled in the electronic record per guidelines. Refer to the
patient's paper chart under the miscellaneous tab to see printed paper medication records and downtime forms.
--- NOTE | 2024-04-30 08:36 | CON.ID ---
Consultation
-
Date/Time Consultation Requested: 04/30/24 8:29
Date/Time Consultation Performed: 04/30/24 8:36
Requesting Provider: Dr Osman
Performing Provider: Dr Canales
Reason for Consultation: covid 19 infection
Chief Complaint / Past History
Chief Complaint
lethargy
History of Present Illness
Mr Garland is an 84 year old male past medical history of Waldenstrom Macroglobulinemia, and paroxysmal atrial fibrillation who presents with lethargy. Patient is a poor historian, history from chart review and conversation with adult son bernadette
(, anesthesiologist). Son reports that patient was recently placed in SNF after they had noted increasing lethargy, transient focal neuro deficits which they correlate with uncontrolled waldenstroms. They realized in hindsight that he had been
sporadically taken his medications for at least 3 months. Of note developed a cough about 1 week ago, and diagnosed with CXR on Xray several days ago. Then found toe be more lethargic today and was referred to the ER.
Since arrival here no kandy fevers, bp stable, saturating well on 2L NC, wbc 8.8, hgb 12.4, plt 328, L shift noted and lymphocytopenia, cr 1.1, t bili 1.1, ast 25, alt 18, alk phos 81, CXR: severe multifocal pneumonia, CT head no acute abnormality,
procal negative, covid ag positive, sputum culture ordered but not yet completed, was on zosyn/doxycycline, ID is consulted for assistance with management.
Past History
Additional Past Medical History:
Paroxysmal Atrial Fibrillation
Sick Sinus Syndrome s/p Pacemaker
Essential Hypertension
Waldenstrom Macroglobulinemia
Depression
BPH
GERD
CVA
Additional Past Surgical History:
TURP
Bilateral Cataract
Left Knee Meniscus Repair
Tonsillectomy
Permanent Pacemaker
Allergy History:
No Known Allergies Allergy (Verified 04/14/24 13:19)
Medications Reviewed: Yes
Social History
Tobacco: Non-Smoker
Personal:
Living: Assisted Living
Family History
Family History: Not Pertinent
Review of Systems
Review of Systems
General: Negative Fever or Chills
All systems: All other systems were reviewed and were negative
Vital Signs
Temp Pulse Resp BP Pulse Ox
99.7 F 111 16 152/99 95
04/30/24 01:01 04/30/24 01:01 04/30/24 01:01 04/30/24 01:01 04/30/24 04:29
Physical Exam
Physical Exam
Constitutional: Acutely Ill and Chronically Ill
Cardiovascular: Regular Rate and S1/S2; Negative Murmur or Rub
Pulmonary: Clear and Symmetric; Negative Wheezes, Rales or Rhonchi
Gastrointestinal: Soft, Non Tender, Non Distended and Normal Bowel Sounds
Skin: Warm and Dry; Negative Rash or Jaundice
Neurological: Awake
Lab / Diagnostic Study Results
04/29/24 18:18
04/29/24 18:18
Abs Immat Gran (auto) 0.1 10^3/uL (0-0.05) H 04/29/24 18:18
Absolute Neuts (auto) 7.0 10^3/uL (1.4-6.5) H 04/29/24 18:18
Absolute Lymphs (auto) 1.0 10^3/uL (1.2-3.4) L 04/29/24 18:18
Absolute Monos (auto) 0.6 10^3/uL (0.1-0.6) 04/29/24 18:18
Absolute Basos (auto) 0.0 10^3/uL (0-0.2) 04/29/24 18:18
Immature Gran % 0.6 % (0-0.5) H 04/29/24 18:18
Neutrophils % 80.3 % (42.2-75.2) H 04/29/24 18:18
Lymphocytes % 11.0 % (20.5-51.1) L 04/29/24 18:18
Monocytes % 7.3 % (1.7-9.3) 04/29/24 18:18
Eosinophils % 0.6 % (0-6) 04/29/24 18:18
Basophils % 0.2 % (0-2) 04/29/24 18:18
Lactic Acid 2.0 mmol/L (0.7-2.0) 04/29/24 18:18
Procalcitonin 0.16 ng/ml (0.0-0.25) 04/29/24 19:07
Microbiology Results
Micro:
04/30/24 05:13 MRSA Screen - Pending
Nose
04/29/24 18:18 Influenza Types A & B (ALAINA) - Final
Nasal Swab Negative for Influenza A & B, NAAT
Negative results must be combined with clinical observations
and patient history.
Nucleic Acid Amplification test (NAAT)performed on the
[employer] platform.
Assessment / Plan
COVID Pneumonia
Immunosuppression - B cell inhibition
Waldenstrom Macroglobulinemia
- on pirtoburtinib outpatient - this inhibits B cell proliferation, would consider holding x5-10 days while treating covid, my office will leave message for ordering MD Dr Delta Luis at [facility] including my cell phone number and that I would like to
hold this medication - for now I have held the medication pending that conversation
- on minimal O2 but with diffuse infiltrates - daily O2 weaning trials
- start paxlovid
- already on apixiban 2.5 mg PO BID dose - no need for adjustment
- tamsulosin already held
- held pirtobrutinib; if we are unable to hold this medication (see above) the will switch paxlovid to alternative, however, paxlovid likely the best option for this patient
- agree with dexamethasone plan 10 days or until consistently no longer requiring o2.
- procalcitonin normal - stopped antibiotics for now - daily clinical reassessment, no need to trend procals
- follow up MRSA screen
- follow up sputum culture if able to produce one (doubtful)
- immunosuppressed patients can have prolonged viral shedding, isolation while inpatient, may consider a test of cure if notable clinical improvement
- minimal influenza transmission this summer, advise against sending these tests until fall
- spoke at length with adult son Austin Garland MD anesthesiology [phone] - shares that they have recently realized that dad has been inconsistent with his meds at least one month and have recently noticed marked malaise and a transient focal
neuro deficit which suggested uncontrolled Waldenstroms, he requests an IgM level which I have ordered. I will also consult hematology; cara texted with dr heredia who agrees with holding pirtobrutinib
[2024-04-30] MEDS: PROZAC 10 MG PO (08:56)
[2024-04-30] MEDS: TOPROL XL 50 MG PO (08:56)
[2024-04-30] MEDS: CLARITIN 10 MG PO (08:56)
[2024-04-30] MEDS: MUCINEX 600 MG PO ×2 (08:56→20:04)
[2024-04-30] MEDS: ELIQUIS 2.5 MG PO ×2 (08:57→20:04)
[2024-04-30] MEDS: PEPCID 20 MG PO (08:57)
[2024-04-30] MEDS: PAXLOVID 2X150 MG-100 MG DOSE PACK 1 DOSE PO ×2 (09:24→21:24)
[2024-04-30 10:10] LABS: Urine Albumin 2+ (Neg - Trace); Urine Bilirubin Negative (Negative); Urine Character Slightly Cloudy (Clear); Urine Color Yellow; Urine Glucose Negative (Negative); Urine Ketone Negative (Negative); Urine Leukocyte 1+ (Negative); Urine Nitrite Negative (Negative); Urine Occult Blood 4+ (Negative); Urine Specific Gravity 1.025 (<1.030); Urine Urobilinogen 2+ (Neg - 1+)
--- NOTE | 2024-04-30 10:25 | PTOTSP ---
Speech Language Pathology
Pt seen for clinical bedside swallow evaluation. Son present, who is an anesthesiologist. He stated that pt has never had any known difficulty swallowing, but stated he has declined in the last 6 months and even more so in the last 3 weeks, so he
wouldn't be surprised if he potentially was aspirating. Intermittent baseline cough noted. P.O. trials of puree, regular solids, and thin liquids provided. Similar cough also intermittently noted with P.O. trials. Unsure if related to P.O.
intake or baseline cough from COVID. Suspect related to COVID as coughing inconsistent across consistencies, but will monitor.
Recommend:
(1) Continue regular solids/thin liquids
(2) General aspiration precautions
(3) Meds as tolerated
(4) RAG GRADER to continue to follow. Will consider VSE pending progress
[2024-04-30 12:42] LABS: Urine Squamous Cell 16-20 /LPF (Few)
[2024-04-30 12:44] LABS: Urine Red Blood Cell >100 /HPF (0-2)
--- NOTE | 2024-04-30 15:07 | W.PN.HOSP.TC ---
Today's Communication/Plan
-
Son one of our anesthesiologist
Assessment / Plan
Assessment / Plan
Physical exam:
General: Awake, alert and oriented x2, mildly and pleasantly conversant not in distress and holds appropriate conversation.
HEENT: No active discharge, ecchymosis or bruising, moist lips, tongue and mucous membrane.
Eyes: No discharge or red conjunctiva, no nystagmus, pupils are reactive and equal
Neck:Supple, no JVD no bruit no goiter.
Respiratory: Normal AP contour and diameter, normal chest wall movement, normal respiratory effort, no respiratory distress,
Lungs: Good air entry bilaterally, no wheezing or rhonchi, no rales or crackles
Heart: S1, S2 regular, normal rate, no added sound.
Gastrointestinal: Positive bowel sounds, soft, nontender, no guarding or rigidity or organomegaly
Musculoskeletal: , no chest wall abnormality or tenderness. All joints and extremities have good range of motion, no muscle tenderness or any joint swelling or tenderness.
Extremities: No pitting edema, good peripheral pulses, good range of motion
Neurological: Awake, alert and oriented x2, moves extremities freely,, speech clear and comprehensive, good muscle tone,
Psychiatric: Mildly and pleasantly confused some cognitive dysfunction impression, normal mood, normal thought and judgment, normal affect,
84-year-old male with resident assisted living, brought in for mental status change which is likely secondary to hypoxic spectra failure and COVID pneumonia.
Acute hypoxic respiratory failure: Likely secondary to COVID-pneumonia, procalcitonin negative therefore doubt bacterial infection of pulmonary embolism
Contact and droplet isolation
ID consult and started on Paxlovid while doxycycline and Zosyn discontinued.
Oxygen and try to wean off
Started on cough medication
Immunosuppression - B cell inhibition
Secondary to oral chemotherapy.
Will hold per IDs recommendation because of interaction with Paxlovid.
Waldenstrom Macroglobulinemia
I spoke to his son's multiple anesthesiologist and from his point of view scan worried about that the patient is not consistent with his oral chemo therefore recommended to order IgM as he worried about flareup of his Waldenstr�m's macroglobulinemia.
Hematology consulted
IgM ordered by infectious disease.
History of A-fib anticoagulated with Eliquis 2.5 twice daily we will continue.
Chronic anemia: Stable likely secondary to Waldenstr�m macroglobulinemia
CODE STATUS as discussed with the son is DNR
DVT prophylaxis Lovenox
Anticipated Discharge: > 48 hours
Subjective/Interval History
-
Date of Service: April 30, 2024
Seen and examined, awake and alert, mildly and pleasantly confused, oriented to person and place, looks calm and comfortable denies any chest pain or shortness of breath or nausea
On 2 L oxygen through the nasal cannula, not in distress, denies any nausea vomiting or diarrhea.
Patient`s answers all Short mostly yes and no visit,
Objective Data
-
Vital Signs:
Vital Signs
Temp Pulse Resp BP Pulse Ox
98.2 F 98 16 139/92 93
04/30/24 07:35 04/30/24 08:56 04/30/24 07:35 04/30/24 08:56 04/30/24 13:26
I&O
04/29/24 04/30/24 05/01/24
07:59 07:59 07:59
Intake Total 0 / 0
Balance 0 / 0
Review of Systems
-
Unable to obtain full review of systems at this time due to: Dementia (Provide limited information,)
--- NOTE | 2024-04-30 15:32 | CM ---
Reviewed the chart notes and spoke with the patient's son Adam via telephone due to the patient's Covid + status. The patient has been at the [facility] for approximately four weeks. When entering the [facility] patient was able to ambulate with a
shuffling gait with no assistive devices. Recently at the [facility] the patient has been using a wheelchair due to weakness. The patient is currently on supplemental O2 @ 2L/min continuous. The patient has not been to a SNF/rehab in the past. PT
recommending SNF. Family choices are [facility], [facility], [facility], and [facility]. Precert will be required. CM continues to be available to patient/family and is monitoring medical plan for needs at discharge.
Plan: Discharge to SNF/rehab prior to transitioning back to [facility].
[2024-04-30] MEDS: DECADRON 6 MG IV (21:23)
[2024-04-30 23:56] LABS: IgM 2214 mg/dl (40-230)
[2024-05-01 07:45] VITALS: BP 145/95
[2024-05-01] MEDS: TOPROL XL 50 MG PO (08:23)
[2024-05-01] MEDS: PAXLOVID 2X150 MG-100 MG DOSE PACK 1 DOSE PO ×2 (08:23→20:11)
[2024-05-01] MEDS: PEPCID 20 MG PO (08:23)
[2024-05-01] MEDS: MUCINEX 600 MG PO ×2 (08:24→20:11)
[2024-05-01] MEDS: PROZAC 10 MG PO (08:25)
[2024-05-01] MEDS: ELIQUIS 2.5 MG PO ×2 (08:25→20:11)
[2024-05-01] MEDS: CLARITIN 10 MG PO (08:25)
--- NOTE | 2024-05-01 09:44 | CON.ONC ---
Impression
Impression
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
Medical noncompliance
COVID-19
Plan
Plan
No deleterious effects associated likely associated with short treatment and irruption of Demetria kinase inhibitor pirtoburtinib
Serum protein electrophoresis with immunofixation to document M protein level given question of medical compliance in recent past
IgG level
Continue infectious disease management
Monitor CBC
Patient History
History of Present Illness
Sebastián Garland is an 84 year old male past medical history of LPL and paroxysmal atrial fibrillation who presents with lethargy. Patient is a poor historian much of the history gleaned from previous documentation. Patient has had neurologic
manifestations of paraprotein associated with LPL. There is been some medical noncompliance with Demetria kinase inhibitor. Patient currently with COVID-19 and isolation. He appeared alert and less lethargic than described sitting in the chair
eating breakfast but offered little insight into his past medical history or medical compliance.
Past-Medical/Surgical History
Past History
Additional Past Medical History:
Paroxysmal Atrial Fibrillation
Sick Sinus Syndrome s/p Pacemaker
Essential Hypertension
Waldenstrom Macroglobulinemia
Depression
BPH
GERD
CVA
Additional Past Surgical History:
TURP
Bilateral Cataract
Left Knee Meniscus Repair
Tonsillectomy
Permanent Pacemaker
Social History
Tobacco: Non-Smoker
Personal:
Living: Assisted Living
Family History
Family History: Not Pertinent
Patient Medication
�Medication �Instructions �Recorded �Confirmed �Last Taken �Type
famotidine 40 mg tablet 40 mg PO DAILY Gastrointestinal 08/29/12 04/29/24 04/27/22 21:00 History
issue
L.acidophilus-L.plantarum-B.animalis-B.longum 1 cap PO DAILY Gastrointestinal 04/29/24 04/29/24 Unknown History
2 billion cell capsule (Probiotic Issue
Acidophilus Beads)
amoxicillin 875 mg-potassium 1 tab PO BID Infection 04/29/24 04/29/24 Unknown History
clavulanate 125 mg tablet
apixaban 2.5 mg tablet (Eliquis) 2.5 mg PO BID Blood Clot 04/29/24 04/29/24 Unknown History
Prevention/Tx
doxycycline hyclate 100 mg capsule 100 mg PO BID Infection 04/29/24 04/29/24 Unknown History
fluoxetine 10 mg tablet 10 mg PO DAILY Depression 04/29/24 04/29/24 Unknown History
guaifenesin 100 mg/5 mL oral 200 mg PO Q6HPRN PRN cough 04/29/24 04/29/24 Unknown History
liquid (Chest Congestion Relief)
loperamide 2 mg tablet 2 mg PO QIDPRN PRN diarrhea 04/29/24 04/29/24 Unknown History
(Anti-Diarrheal (loperamide))
loratadine 10 mg tablet 10 mg PO DAILY Allergies 04/29/24 04/29/24 Unknown History
metoprolol succinate 50 mg 50 mg PO DAILY Heart Failure 04/29/24 04/29/24 Unknown History
tablet,extended release 24 hr
pirtobrutinib 100 mg tablet 200 mg PO DAILY@0600 Cancer 04/29/24 04/29/24 Unknown History
(Jaypirca)
Active Medications
Generic Name Dose Route Start Last Admin
Trade Name Freq PRN Reason Stop Dose Admin
Apixaban 2.5 mg 04/30/24 08:00 05/01/24 08:25
Apixaban (Eliquis) 2.5 Mg Tablet PO 05/28/24 07:59 2.5 mg
BID ALBERT Administration
Dexamethasone Sodium Phosphate 6 mg 04/30/24 22:00 04/30/24 21:23
Dexamethasone 4 Mg/Ml 1 Ml Vial IV 05/28/24 21:59 6 mg
Q24H ALBERT Administration
Famotidine 20 mg 04/30/24 08:00 05/01/24 08:23
Famotidine 20 Mg Tablet PO 05/28/24 07:59 20 mg
DAILY ALBERT Administration
Fluoxetine HCl 10 mg 04/30/24 08:00 05/01/24 08:25
Fluoxetine 10 Mg Capsule PO 05/28/24 07:59 10 mg
DAILY ALBERT Administration
Guaifenesin 600 mg 04/30/24 08:00 05/01/24 08:24
Guaifenesin 600 Mg Extended Release Tablet PO 05/28/24 07:59 600 mg
Q12 ALBERT Administration
Loratadine 10 mg 04/30/24 08:00 05/01/24 08:25
Loratadine 10 Mg Tablet PO 05/28/24 07:59 10 mg
DAILY ALBERT Administration
Metoprolol Succinate 50 mg 04/30/24 08:00 05/01/24 08:23
Metoprolol 50 Mg Extended Release Tablet PO 05/28/24 07:59 50 mg
DAILY ALBERT Administration
Nirmatrelvir/Ritonavir 1 dose 04/30/24 09:00 05/01/24 08:23
Nirmatrelvir 300 Mg/Ritonavir 100 Mg (Paxlovid 300 Mg;100 Mg Dose Pack) PO 05/04/24 20:01 1 dose
BID ALBERT Administration
Sodium Chloride 0 flush 04/29/24 23:00
Sodium Chloride 0.9% (Flush) Syringe IV 05/27/24 22:59
PER PROTOCOL ALBERT
Review of Systems
-
10 point review of systems fails elicit additional complaints on those reviewed in HPI
Physical Exam
-
Physical Exam
Constitutional: Chronically Ill
Cardiovascular: Regular Rate and S1/S2; Negative Murmur or Rub
Pulmonary: Clear and Symmetric; Negative Wheezes, Rales or Rhonchi
Gastrointestinal: Soft, Non Tender, Non Distended and Normal Bowel Sounds
Skin: Warm and Dry; Negative Rash or Jaundice
Neurological: Awake
Labs
Lab Results
WBC 8.8 10^3/uL (4.8-10.8) 04/29/24 18:18
RBC 3.95 10^6/uL (4.70-6.10) L 04/29/24 18:18
Hgb 12.4 g/dL (13.0-18.0) L 04/29/24 18:18
Hct 36.0 % (39.0-52.0) L 04/29/24 18:18
MCV 91.1 fL (80.0-94.0) 04/29/24 18:18
MCH 31.4 pg (27.0-31.0) H 04/29/24 18:18
MCHC 34.4 g/dL (33.0-37.0) 04/29/24 18:18
RDW 13.4 % (11.5-14.5) 04/29/24 18:18
Plt Count 328 10^3/uL (130-400) 04/29/24 18:18
MPV 10.2 fL (7.4-10.4) 04/29/24 18:18
Abs Immat Gran (auto) 0.1 10^3/uL (0-0.05) H 04/29/24 18:18
Absolute Neuts (auto) 7.0 10^3/uL (1.4-6.5) H 04/29/24 18:18
Absolute Lymphs (auto) 1.0 10^3/uL (1.2-3.4) L 04/29/24 18:18
Absolute Monos (auto) 0.6 10^3/uL (0.1-0.6) 04/29/24 18:18
Absolute Eos (auto) 0.1 10^3/uL (0-0.7) 04/29/24 18:18
Absolute Basos (auto) 0.0 10^3/uL (0-0.2) 04/29/24 18:18
Immature Gran % 0.6 % (0-0.5) H 04/29/24 18:18
Neutrophils % 80.3 % (42.2-75.2) H 04/29/24 18:18
Lymphocytes % 11.0 % (20.5-51.1) L 04/29/24 18:18
Monocytes % 7.3 % (1.7-9.3) 04/29/24 18:18
Eosinophils % 0.6 % (0-6) 04/29/24 18:18
Basophils % 0.2 % (0-2) 04/29/24 18:18
Creatinine 1.1 mg/dL (0.7-1.3) 04/29/24 18:18
Vital Signs
Vital Signs
Temp Pulse Resp BP Pulse Ox
97.3 F 85 16 145/95 98
05/01/24 07:45 05/01/24 08:23 05/01/24 07:45 05/01/24 08:23 05/01/24 09:39
[2024-05-01 11:47] LABS: IgG 325 mg/dl (700-1600)
--- NOTE | 2024-05-01 11:55 | PN.CDI ---
CDI
- -
CDI:
Physician Documentation Request
Admit Date: 04/29/24 21:35
Dear Doctor Jacqui,
Please review the following and provide your response in the progress notes.
Clinical Indicators:
- 04/29 ER Physician 'presenting via EMS from [facility] for evaluation of altered mental status'
- 04/30 PN 'brought in for mental status change which is likely secondary to hypoxic spectra failure and COVID pneumonia'
- per RN, AAOx1
Please clarify in the Progress Notes which, if any of the following, is the most likely etiology of the confusion/altered mental status.
Encephalopathy - indicate type, such as metabolic, toxic, septic, alcoholic, anoxic, hypertensive etc. due to a specific condition such as UTI, CVA, hyponatremia etc.
Dementia with acute delirium - indicate type fo dementia, such as Alzheimer's, senile, vascular, Lewy body etc.
Baseline Dementia - indicate type, such as Alzheimer's, senile, vascular, Lewy body etc., and any associated behavioral disturbances (aggressive, combative or violent behavior) if present
Acute or subacute confusional state due to (specify known or suspected etiology)
Other
Use of terms such as suspected, likely, concern for, or probable (associated with a specific diagnosis that is being evaluated, monitored, or treated as if it exists) are acceptable and can be coded in the inpatient setting, when documented at the
time of discharge.
Thank you,
Brian Dey RN
CDI Specialist
Please use your independent medical judgment in providing your response.
--- NOTE | 2024-05-01 12:00 | PN.CDI ---
CDI
- -
CDI:
Physician Documentation Request
Admit Date: 04/29/24 21:35
Dear Doctor Jacqui,
Please review the following and provide your response in the progress notes.
Clinical Indicators:
Documentation in the record on 04/30 PN includes the diagnosis of acute hypoxic respiratory failure.
- 04/29 ER Physician 'Rhonchi noted on lung exam. No respiratory distress noted'
- 04/29 H&) 'Rhonchi (Bilateral) and Non Labored Respirations'
- Documented VS 2L O2, pulse ox >91%
Based on the above information and the recognized standard for respiratory failure could you please verify this diagnoses is still accurate and reflective of the patient�s condition to ensure quality of the medical record
Please clarify in the Progress Notes:
Acute hypoxic respiratory failure is/was present and is a clinical diagnosis based on (please include this additional support in the medical record)
After study respiratory failure has been ruled out, acute hypoxic respiratory insufficiency
Other
Recognized standard criteria for respiratory failure includes:
(Source: [facility] Jul 2013)
ABGs (1 or more)
�PO2 <60 or RA SpO2 <91%
�PcO2 >50 and pH <7.35
�pO2 decrease or pcO2 increase by 10 mmHg from baseline if known Symptoms:
�Tachypnea, SOB, dyspnea
�Pallor or cyanosis
�Anxiety or restlessness
�Use of accessory muscles
�Retractions (grunting in newborns)
�Unable to speak in complete sentences
Supplemental O2 requirement of 40% (5LPM) or more Intubation is not required
Based on the above information and the recognized standard for respiratory failure could you please verify this diagnoses is still accurate and reflective of the patient�s condition to ensure quality of the medical record.
Use of terms such as suspected, likely, concern for, or probable (associated with a specific diagnosis that is being evaluated, monitored, or treated as if it exists) are acceptable and can be coded in the inpatient setting, when documented at the
time of discharge.
Thank you,
Brian Dey RN
CDI Specialist
Please use your independent medical judgment in providing your response.
--- NOTE | 2024-05-01 14:02 | W.PN.HOSP.TC ---
Today's Communication/Plan
-
Discussed with the son yesterday
Discussed with the nurse and machine adjuster leader case trim
Assessment / Plan
Assessment / Plan
Physical exam:
General: Sitting on the chair, awake, alert and oriented x2, mildly and pleasantly conversant not in distress and holds appropriate conversation.
HEENT: No active discharge, ecchymosis or bruising, moist lips, tongue and mucous membrane.
Eyes: No discharge or red conjunctiva, no nystagmus, pupils are reactive and equal
Neck:Supple, no JVD no bruit no goiter.
Respiratory: Normal AP contour and diameter, normal chest wall movement, normal respiratory effort, no respiratory distress,
Lungs: Good air entry bilaterally, no wheezing or rhonchi, no rales or crackles
Heart: S1, S2 regular, normal rate, no added sound.
Gastrointestinal: Positive bowel sounds, soft, nontender, no guarding or rigidity or organomegaly
Musculoskeletal: , no chest wall abnormality or tenderness. All joints and extremities have good range of motion, no muscle tenderness or any joint swelling or tenderness.
Extremities: No pitting edema, good peripheral pulses, good range of motion
84-year-old male with resident assisted living, brought in for mental status change which is likely secondary to hypoxic spectra failure and COVID pneumonia.
Acute hypoxic respiratory failure: Likely secondary to COVID-pneumonia, procalcitonin negative therefore doubt bacterial infection or pulmonary embolism
Contact and droplet isolation
ID consult and started on Paxlovid while doxycycline and Zosyn discontinued.
Oxygen and try to wean off
Cough medication and Tylenol as needed
Started on cough medication
Diarrhea:
Likely secondary to COVID-19 or other causes need to be considered including received couple dose of antibiotic, C. difficile is possibility but unlikely
Get a stool for C. difficile and culture
Encourage oral hydration
Recheck lab if diarrhea persists, may consider some IV fluid
Immunosuppression - B cell inhibition
Secondary to oral chemotherapy.
Will hold per IDs recommendation because of interaction with Paxlovid.
Waldenstrom Macroglobulinemia
According to his son patient was not consistent with his oral chemo therefore recommended to order IgM as he worried about flareup of his Waldenstr�m's macroglobulinemia.
Hematology input appreciated
IgG is on the low side.
It is okay from hematology's point of view to holding his oral chemo while we treating the COVID
History of A-fib anticoagulated with Eliquis 2.5 twice daily we will continue.
Chronic anemia: Stable likely secondary to Waldenstr�m macroglobulinemia
CODE STATUS as discussed with the son is DNR
Still open personal care and PT OT recommended intermediate,
DVT prophylaxis Lovenox
Anticipated Discharge: > 48 hours
Subjective/Interval History
-
Date of Service: May 01, 2024
Seen and examined, awake and alert, sitting on the chair for little lethargic and did not sleep well, experienced few episodes of nonbloody diarrhea, denies abdominal pain or any associated nausea or vomiting or fever or chill, nasal cannula, still
having a dry cough.
Objective Data
-
Vital Signs:
Vital Signs
Temp Pulse Resp BP Pulse Ox
97.3 F 85 16 145/95 98
05/01/24 07:45 05/01/24 08:23 05/01/24 07:45 05/01/24 08:23 05/01/24 09:39
I&O
04/30/24 05/01/24 05/02/24
07:59 07:59 07:59
Intake Total 0 / 0 1800 / 1800
Balance 0 / 0 1800 / 1800
Review of Systems
-
All other systems: Reviewed and negative
--- NOTE | 2024-05-01 14:10 | W.PN.ID1 ---
Date of Service
Date of Service: May 01, 2024
Today's Communication
appreciate oncology input
paxlovid x5 days
daily weaning trials
Assessment / Plan
COVID Pneumonia
Immunosuppression - B cell inhibition
Waldenstrom Macroglobulinemia
- hold pirtoburtinib outpatient - x5-10 days while treating covid - appreciate oncology input
- on minimal O2 but with diffuse infiltrates - daily O2 weaning trials
- c/w paxlovid
- already on apixiban 2.5 mg PO BID dose - no need for adjustment
- tamsulosin already held
- held pirtobrutinib; if we are unable to hold this medication the will switch paxlovid to alternative, however, paxlovid likely the best option for this patient
- agree with dexamethasone plan 10 days or until consistently no longer requiring o2.
- follow up sputum culture if able to produce one (doubtful)
- immunosuppressed patients can have prolonged viral shedding, isolation while inpatient, may consider a test of cure if notable clinical improvement
- follow clinically
Chief Complaint
-: Other (covid)
Subjective / Review of Systems
afebrile
was on room air earlier this am, now 2L sating 98%
loose stool overnight - agree likely due to covid, unlikely to be due to c diff
stool culture per primary team
more alert today - responding appropriately to questions
asking about his glasses
Vital Signs / Physical Exam
Vital Signs
Vital Signs
Temp Pulse Resp BP Pulse Ox
97.3 F 85 16 145/95 98
05/01/24 07:45 05/01/24 08:23 05/01/24 07:45 05/01/24 08:23 05/01/24 09:39
Physical Exam
Constitutional: No Acute Distress and Chronically Ill
Cardiovascular: Regular Rate and S1/S2; Negative Murmur or Rub
Pulmonary: Clear and Symmetric; Negative Wheezes or Rales
Gastrointestinal: Soft, Non Tender, Non Distended and Normal Bowel Sounds
Skin: Warm and Dry; Negative Rash or Jaundice
Objective Data
Lab Data
Lab Results
04/29/24 18:18
04/29/24 18:18
Lactic Acid 2.0 mmol/L (0.7-2.0) 04/29/24 18:18
Total Bilirubin 1.1 mg/dl (0.2-1.3) 04/29/24 18:18
AST 25 U/L (17-59) 04/29/24 18:18
ALT 18 U/L (0-50) 04/29/24 18:18
Alkaline Phosphatase 81 U/L (38-126) 04/29/24 18:18
Most recent labs reviewed.
hasnt produced a sputum
Micro Results:
04/30/24 09:40 Urine Culture - Final
Urine NO GROWTH
04/30/24 09:40 Legionella Urinary Antigen - Final
Urine Negative for Legionella pneumophila Serogroup 1 antigen.
A negative result does not rule out the possiblity of
Legionella infection due to other serogroups or species of
Legionella. Clinical correlation is recommended.
Streptococcus pneumoniae Antigen (M - Final
Negative for Streptococcus pneumoniae antigen.
A negative result does not exclude infection with
Streptococcus pneumoniae. Clinical correlation is
recommended.
04/30/24 05:13 MRSA Screen - Final
Nose No Methicillin Resistant Staphylococcus aureus isolated.
04/29/24 18:18 Influenza Types A & B (ALAINA) - Final
Nasal Swab Negative for Influenza A & B, NAAT
Negative results must be combined with clinical observations
and patient history.
Nucleic Acid Amplification test (NAAT)performed on the
[employer] website platform.
[2024-05-01 14:25] VITALS: BP 146/96
[2024-05-01 15:30] VITALS: BP 139/88
--- NOTE | 2024-05-01 20:43 | PTCARENOTE ---
pt pulling at tubes. pt attempting to get out of bed. pt not listening to med sitter. milk inspector notified. solf limb bilat upper restraint applied. will monitor.
[2024-05-01] MEDS: DECADRON 6 MG IV (23:10)
[2024-05-01 23:30] VITALS: BP 163/95
[2024-05-02 08:30] VITALS: BP 163/77
[2024-05-02] MEDS: ELIQUIS 2.5 MG PO ×2 (09:08→19:46)
[2024-05-02] MEDS: PAXLOVID 2X150 MG-100 MG DOSE PACK 1 DOSE PO ×2 (09:08→19:46)
[2024-05-02] MEDS: MUCINEX 600 MG PO ×2 (09:08→19:47)
[2024-05-02] MEDS: PEPCID 20 MG PO (09:08)
[2024-05-02] MEDS: CLARITIN 10 MG PO (09:08)
[2024-05-02] MEDS: PROZAC 10 MG PO (09:08)
[2024-05-02 09:09] LABS: % Basophils 0.1 % (0-2); % Lymphocytes 5.2 % (20.5-51.1); % Monocytes 1.4 % (1.7-9.3); % Neutrophils 92.3 % (42.2-75.2); Absolute Immature Granulocytes 0.1 10^3/uL (0-0.05); Absolute Lymphocytes 0.7 10^3/uL (1.2-3.4); Absolute Monocytes 0.2 10^3/uL (0.1-0.6); Absolute Neutrophils 12.3 10^3/uL (1.4-6.5); Hematocrit 34.5 % (39.0-52.0); Hemoglobin 11.9 g/dL (13.0-18.0); Mean Corp Hgb Conc. 34.5 g/dL (33.0-37.0); Mean Corpuscular Hgb 31.3 pg (27.0-31.0); Mean Corpuscular Volume 90.8 fL (80.0-94.0); Mean Platelet Volume 10.3 fL (7.4-10.4); Nucleated Red Blood Cells % 0 % (-); Platelet Count 366 10^3/uL (130-400); Red Cell Dist. Width 13.5 % (11.5-14.5); White Blood Cell Count 13.4 10^3/uL (4.8-10.8)
[2024-05-02] MEDS: TOPROL XL 50 MG PO (09:09)
[2024-05-02 10:43] VITALS: BP 148/95; PULSE 89; O2SAT 89
--- NOTE | 2024-05-02 12:09 | CM ---
Reviewed the chart notes. Referrals sent to [facility], [facility], and [facility]. CM continues to be available to patient/family and is monitoring medical plan for needs at discharge.
Plan: Discharge to SNF/rehab prior to transitioning back to [facility]. Precert will be required.
--- NOTE | 2024-05-02 12:33 | W.PN.HOSP.TC ---
Addendum entered and electronically signed by Michelle Osman MD 05/02/24 16:00:
Other impression: Acute hypoxic spectra failure, as below
Baseline dementia of Alzheimer type.
Original Note:
Today's Communication/Plan
-
Son who is one of our anesthesiologist Austin Garland MD anesthesiology [phone] and updated him
Discussed with the patient
Discussed with the nurse
Assessment / Plan
Assessment / Plan
Physical exam: Sitting on the chair
General: Sitting on the chair, awake, alert and oriented x2, mildly and pleasantly conversant not in distress and holds appropriate conversation.
HEENT: No active discharge, ecchymosis or bruising, moist lips, tongue and mucous membrane.
Eyes: No discharge or red conjunctiva, no nystagmus, pupils are reactive and equal
Neck:Supple, no JVD no bruit no goiter.
Respiratory: Normal AP contour and diameter, normal chest wall movement, normal respiratory effort, no respiratory distress,
Lungs: Good air entry bilaterally, no wheezing or rhonchi, no rales or crackles
Heart: S1, S2 regular, normal rate, no added sound.
Gastrointestinal: Positive bowel sounds, soft, nontender, no guarding or rigidity or organomegaly
84-year-old male with resident assisted living, brought in for mental status change which is likely secondary to hypoxic spectra failure and COVID pneumonia.
Acute hypoxic respiratory failure: Likely secondary to COVID-pneumonia, procalcitonin negative therefore doubt bacterial infection or pulmonary embolism
Contact and droplet isolation
ID consult and started on Paxlovid while doxycycline and Zosyn discontinued., Day 3 yesterday
Oxygen and try to wean off
Cough medication and Tylenol as needed
Started on cough medication
Diarrhea: According to his son he has been having incontinent for more than 1 year been worked out as an outpatient no reason identified.
Likely secondary to COVID-19 or other causes need to be considered including received couple dose of antibiotic, C. difficile is possibility but unlikely,
Get a stool for C. difficile been negative and culture pending
Encourage oral hydration
Recheck lab if diarrhea persists, may consider some IV fluid
Immunosuppression - B cell inhibition
Secondary to oral chemotherapy.
Will hold his oral chemo per IDs and oncology recommendation because of interaction with Paxlovid.
Waldenstrom Macroglobulinemia
According to his son patient was not consistent with his oral chemo therefore recommended to order IgM as he worried about flareup of his Waldenstr�m's macroglobulinemia.
Hematology input appreciated
Ig panel ordered and pending.
It is okay from hematology's point of view to holding his oral chemo while we treating the COVID
History of A-fib anticoagulated with Eliquis 2.5 twice daily we will continue.
Chronic anemia: Stable likely secondary to Waldenstr�m macroglobulinemia
CODE STATUS as discussed with the son is DNR
Still open personal care and PT OT recommended fpc,
DVT prophylaxis Lovenox
Anticipated Discharge: 24 - 48 hours
Subjective/Interval History
-
Date of Service: May 02, 2024
Seen and examined, sitting on the chair,Not in distress, denies shortness of breath, still has dry cough, no fever or chill, denies any chest, on and off have loose stool. Tolerates diet.
Mildly and pleasantly confused
Objective Data
-
Labs:
Laboratory Results
05/02/24
08:15
WBC 13.4 H
Hgb 11.9 L
Hct 34.5 L
Plt Count 366
Vital Signs:
Vital Signs
Temp Pulse Resp BP Pulse Ox
97.5 F 85 15 149/97 94
05/02/24 08:30 05/02/24 09:09 05/02/24 08:30 05/02/24 09:09 05/02/24 10:44
I&O
05/01/24 05/02/24 05/03/24
07:59 07:59 07:59
Intake Total 1800 / 1800 720 / 720
Balance 1800 / 1800 720 / 720
Review of Systems
-
All other systems: Reviewed and negative
--- NOTE | 2024-05-02 14:49 | W.PN.ID1 ---
Date of Service
Date of Service: May 02, 2024
Today's Communication
- hold pirtoburtinib x5 days while treating covid (through 05/04)- appreciate oncology input
- c/w paxlovid x5 days through 05/04
- already on apixiban 2.5 mg PO BID dose - no need for adjustment
- tamsulosin already held
- agree with dexamethasone plan 10 days or until consistently no longer requiring o2.
- patient appears to have been off of immunosuppression for some time - no definitive date of onset known, if patient will remain in house can begin test of cure which is two covid ags 48 hours apart if both negative can take off isolation,
alternatively 10 days at the longest through 05/10
- will follow peripherally, please recall if further questions
Assessment / Plan
COVID Pneumonia
Immunosuppression - B cell inhibition
Waldenstrom Macroglobulinemia
- hold pirtoburtinib x5 days while treating covid (through 05/04)- appreciate oncology input
- daily O2 weaning trials
- c/w paxlovid x5 days through 05/04
- already on apixiban 2.5 mg PO BID dose - no need for adjustment
- tamsulosin already held
- agree with dexamethasone plan 10 days or until consistently no longer requiring o2.
- patient appears to have been off of immunosuppression for some time - no definitive date of onset known, if patient will remain in house can begin test of cure which is two covid ags 48 hours apart if both negative can take off isolation,
alternatively 10 days at the longest through 05/10
- will follow peripherally, please recall if further questions
Chief Complaint
-: Other (covid)
Subjective / Review of Systems
afebrile
now on room air
was on restraints overnight as pulling at ivs, now removed
Vital Signs / Physical Exam
Vital Signs
Vital Signs
Temp Pulse Resp BP Pulse Ox
97.5 F 85 15 149/97 95
05/02/24 08:30 05/02/24 09:09 05/02/24 08:30 05/02/24 09:09 05/02/24 14:11
Physical Exam
Constitutional: No Acute Distress and Comfortable
Cardiovascular: Regular Rate and S1/S2; Negative Murmur or Rub
Pulmonary: Clear and Symmetric; Negative Wheezes or Rales
Gastrointestinal: Soft, Non Tender, Non Distended and Normal Bowel Sounds
Skin: Warm and Dry; Negative Rash or Jaundice
Objective Data
Lab Data
Lab Results
05/02/24 08:15
04/29/24 18:18
Lactic Acid 2.0 mmol/L (0.7-2.0) 04/29/24 18:18
Total Bilirubin 1.1 mg/dl (0.2-1.3) 04/29/24 18:18
AST 25 U/L (17-59) 04/29/24 18:18
ALT 18 U/L (0-50) 04/29/24 18:18
Alkaline Phosphatase 81 U/L (38-126) 04/29/24 18:18
Most recent labs reviewed.
IgM: 2200
Micro Results:
05/02/24 09:49 C. difficile GDH Antigen & Toxins - Final
Feces/Stool Negative for toxigenic C.difficile
05/02/24 09:49 Salmonella/Shigella Culture - Pending
Feces/Stool Campylobacter Culture - Pending
Shiga Toxin Test - Pending
04/30/24 09:40 Urine Culture - Final
Urine NO GROWTH
04/30/24 09:40 Legionella Urinary Antigen - Final
Urine Negative for Legionella pneumophila Serogroup 1 antigen.
A negative result does not rule out the possiblity of
Legionella infection due to other serogroups or species of
Legionella. Clinical correlation is recommended.
Streptococcus pneumoniae Antigen (M - Final
Negative for Streptococcus pneumoniae antigen.
A negative result does not exclude infection with
Streptococcus pneumoniae. Clinical correlation is
recommended.
04/30/24 05:13 MRSA Screen - Final
Nose No Methicillin Resistant Staphylococcus aureus isolated.
04/29/24 18:18 Influenza Types A & B (ALAINA) - Final
Nasal Swab Negative for Influenza A & B, NAAT
Negative results must be combined with clinical observations
and patient history.
Nucleic Acid Amplification test (NAAT)performed on the
[employer] platform.
[2024-05-02 15:20] VITALS: BP 153/102
[2024-05-02] MEDS: DECADRON 6 MG IV (21:48)
[2024-05-02 23:00] VITALS: BP 153/103
[2024-05-03 06:06] VITALS: BP 152/95
[2024-05-03 07:50] VITALS: BP 154/96
[2024-05-03] MEDS: TOPROL XL 50 MG PO (08:51)
[2024-05-03] MEDS: MUCINEX 600 MG PO ×2 (08:51→20:25)
[2024-05-03] MEDS: PEPCID 20 MG PO (08:51)
[2024-05-03] MEDS: ELIQUIS 2.5 MG PO ×2 (08:51→20:25)
[2024-05-03] MEDS: PROZAC 10 MG PO (08:51)
[2024-05-03] MEDS: CLARITIN 10 MG PO (08:51)
[2024-05-03] MEDS: PAXLOVID 2X150 MG-100 MG DOSE PACK 1 DOSE PO ×2 (09:01→20:25)
--- NOTE | 2024-05-03 13:25 | W.PN.HOSP.TC ---
Today's Communication/Plan
-
continue paxlovid/steroids
rehab placement - likely sunday
Assessment / Plan
Assessment / Plan
84-year-old male with resident assisted living, brought in for mental status change which is likely secondary to hypoxic spectra failure and COVID pneumonia.
1. Acute hypoxic respiratory failure
COVID 19 viral infection in immunocompromised patient
-Chest x-ray images reviewed
-Currently patient on Paxlovid therapy, last dose tomorrow evening
-Symptomatic care for COVID-related cough/fever
-Procalcitonin negative, patient has been taken off of antibiotics
-Oncology evaluated and patient Pirtobrutinib on hold for now.
-Minor elevation in WBC secondary to steroids likely
2. Diarrhea - chronic?
-According to his son he has been having incontinent for more than 1 year been worked out as an outpatient no reason identified.
-Cdiff/stool culture negative
-Encourage oral hydration
-Imodium prn for symptomatic care
3. Waldenstrom Macroglobulinemia
-Repeat SPEP result is pending.
-Zipper Setter Lockstitch following
-Oral med/Pirtobrutinib on hold now
4. History of A-fib
-anticoagulated with Eliquis 2.5 twice daily we will continue.
5. Chronic anemia
-Stable likely secondary to Waldenstr�m macroglobulinemia
6. Generalized weakness
-COVID-related and needs rehab placement
7. LUE swelling
-patient state of being chronic? lymphedema?
-LUE venous doppler in was negative for clot
History of sick sinus syndrome post pacemaker
BPH
GERD
History of CVA
History of TURP
Tonsillectomy
CODE STATUS as discussed with the son is DNR
DVT prophylaxis Lovenox
Anticipated Discharge: 24 - 48 hours
Subjective/Interval History
-
Date of Service: May 03, 2024
Resting comfortably in bed
Remains off of oxygen
Have significant weakness, needing assistance with ADL
Objective Data
-
Vital Signs:
Vital Signs
Temp Pulse Resp BP Pulse Ox
97.6 F 71 18 154/96 92
05/03/24 07:50 05/03/24 07:50 05/03/24 07:50 05/03/24 07:50 05/03/24 08:30
I&O
05/02/24 05/03/24 05/04/24
06:59 06:59 06:59
Intake Total 720 / 720 940 / 940
Balance 720 / 720 940 / 940
Review of Systems
-
Respiratory: Reports No Symptoms
Cardiac: Reports No Symptoms
Abdomen/GI: Reports No Symptoms
Physical Exam
-
General: No Apparent Distress and Comfortable
HEENT: Negative Oxygen
Respiratory: Clear to Auscultation
Cardiac: Regular Rhythm and S1/S2; Negative Murmur or Rub
GI: Soft, Nontender and Nondistended
Musculoskeletal: No Edema
Neuro: Awake, Alert, Oriented, No Motor Deficits and Nonfocal/Grossly Intact
Psych: Calm
[2024-05-03 15:45] VITALS: BP 150/95
[2024-05-03] MEDS: DECADRON 6 MG IV (20:25)
[2024-05-03 23:29] VITALS: BP 142/94
[2024-05-04] VITALS (7 sets, daily range): BP systolic 117–165; BP diastolic 90–110; PULSE 75; O2SAT 94
[2024-05-04] MEDS: PROZAC 10 MG PO (09:07)
[2024-05-04] MEDS: MUCINEX 600 MG PO ×2 (09:07→20:48)
[2024-05-04] MEDS: PAXLOVID 2X150 MG-100 MG DOSE PACK 1 DOSE PO ×2 (09:08→20:47)
[2024-05-04] MEDS: PEPCID 20 MG PO (09:08)
[2024-05-04] MEDS: CLARITIN 10 MG PO (09:08)
[2024-05-04] MEDS: ELIQUIS 2.5 MG PO ×2 (09:08→20:48)
[2024-05-04] MEDS: TOPROL XL 50 MG PO (09:08)
[2024-05-04 11:44] LABS: Blood Urea Nitrogen 31 mg/dl (9-20); Calcium 8.6 mg/dl (8.4-10.2); Carbon Dioxide 32 mmol/L (22-30); Chloride 99 mmol/L (98-107); Estimated Creatinine Clearance 48 ml/min; Glucose 226 mg/dl (70-99); Potassium 3.9 mmol/L (3.5-5.1); Sodium 137 mmol/L (135-145); eGFR > 60.00
[2024-05-04 11:46] LABS: Hematocrit 31.8 % (39.0-52.0); Hemoglobin 11.2 g/dL (13.0-18.0); Mean Corp Hgb Conc. 35.2 g/dL (33.0-37.0); Mean Corpuscular Hgb 30.7 pg (27.0-31.0); Mean Corpuscular Volume 87.1 fL (80.0-94.0); Mean Platelet Volume 10.1 fL (7.4-10.4); Platelet Count 334 10^3/uL (130-400); Red Blood Cell Count 3.65 10^6/uL (4.70-6.10); Red Cell Dist. Width 13.3 % (11.5-14.5); White Blood Cell Count 11.6 10^3/uL (4.8-10.8)
--- NOTE | 2024-05-04 12:19 | W.PN.HOSP.TC ---
Addendum entered and electronically signed by Ilir Castillo MD 05/04/24 13:32:
Add on to diagnosis list;
Cognitive impairment/mild dementia
- no behavioral issues this admission
Original Note:
Today's Communication/Plan
-
Continue current care plan
Follow-up SPEP report
Son updated over the phone
possible rehab tomorrow
Assessment / Plan
Assessment / Plan
84-year-old male with resident assisted living, brought in for mental status change which is likely secondary to hypoxic spectra failure and COVID pneumonia.
1. Acute hypoxic respiratory failure
COVID 19 viral infection in immunocompromised patient
-Chest x-ray images reviewed
-Currently patient on Paxlovid therapy, last dose tomorrow evening
-Symptomatic care for COVID-related cough/fever
-Procalcitonin negative, patient has been taken off of antibiotics
-Oncology evaluated and patient Pirtobrutinib on hold for now.
-Minor elevation in WBC secondary to steroids likely
2. Diarrhea - chronic?
-According to his son he has been having incontinent for more than 1 year been worked out as an outpatient no reason identified.
-Cdiff/stool culture negative
-Encourage oral hydration
-Imodium prn for symptomatic care
3. Waldenstrom Macroglobulinemia
-Repeat SPEP result is pending.
-Credentialing Coordinator following
-Oral med/Pirtobrutinib on hold now
4. History of A-fib
-anticoagulated with Eliquis 2.5 twice daily we will continue.
5. Chronic anemia
-Stable likely secondary to Waldenstr�m macroglobulinemia
6. Generalized weakness
-COVID-related and needs rehab placement
7. LUE swelling
-patient state of being chronic? lymphedema?
-LUE venous doppler in was negative for clot
History of sick sinus syndrome post pacemaker
BPH
GERD
History of CVA
History of TURP
Tonsillectomy
CODE STATUS as discussed with the son is DNR
DVT prophylaxis Lovenox
Anticipated Discharge: Within 24 hours
Subjective/Interval History
-
Date of Service: May 04, 2024
Resting comfortably in bed
Not hypoxic
No acute issues overnight
Objective Data
-
Labs:
Laboratory Results
05/04/24
11:20
WBC 11.6 H
Hgb 11.2 L
Hct 31.8 L
Plt Count 334
Sodium 137
Potassium 3.9
Chloride 99
Carbon Dioxide 32 H
BUN 31 H
Creatinine 1.0
Glucose 226 H
Calcium 8.6
Vital Signs:
Vital Signs
Temp Pulse Resp BP Pulse Ox
97.9 F 72 18 117/92 93
05/04/24 07:40 05/04/24 07:40 05/04/24 07:40 05/04/24 11:10 05/04/24 11:10
I&O
05/03/24 05/04/24 05/05/24
06:59 06:59 06:59
Intake Total 940 / 940 560 / 560
Balance 940 / 940 560 / 560
Review of Systems
-
Respiratory: Reports No Symptoms
Cardiac: Reports No Symptoms
Abdomen/GI: Reports No Symptoms
Physical Exam
-
General: No Apparent Distress and Comfortable
HEENT: Negative Oxygen
Respiratory: Clear to Auscultation
Cardiac: Regular Rhythm and S1/S2; Negative Murmur or Rub
GI: Soft, Nontender and Nondistended
Musculoskeletal: No Edema
Neuro: Awake, Alert, Oriented, No Motor Deficits and Nonfocal/Grossly Intact
Psych: Calm
--- NOTE | 2024-05-04 13:34 | CM ---
CM spoke with patient son, Austin who confirmed [facility] was an acceptable SNF. CM sent via all scripts request for [facility] to start [employer] auth request. CM also sent PT/OT request for updated PT/OT assessments. CM will start auth with
information as soon as available. CM will continue to follow for discharge planning needs.
Plan;SNF; accelerated when bed available and pending auth
[2024-05-04] MEDS: DECADRON 6 MG IV (21:00)
[2024-05-04 21:30] LABS: Albumin 2.64 g/dL (3.75-5.01); Alpha 1 Globulin 0.54 g/dL (0.19-0.46); Alpha 2 Globulin 0.93 g/dL (0.48-1.05); Free Kappa Light Chains,Quant 239.38 mg/L (3.30-19.40); Free Lambda Light Chains,Quant 10.43 mg/L (5.71-26.30); IgA 60 mg/dL (68-408); IgG 342 mg/dL (768-1632); IgM 2236 mg/dL (35-263); Immunofixation Electrophoresis IFE Done; Kappa/Lambda Fr Light Ratio 22.95 (0.26-1.65); Monoclonal Protein 1.54 g/dL (<=0.00); Total Protein-Electrophoresis 6.3 g/dL (6.3-8.2)
--- NOTE | 2024-05-05 04:00 | PTCARENOTE ---
Pt admitted to room 2138 from ED, aaox3, pulled to bed from stretcher with assist x4. Medicated for pain 10/ from R hip. Pt oriented to room and call light. Bladder scanned for 723 cc, unable to void after multiple attempts. Straight cath x1 for
700cc, urine sample collected and sent to lab.
[2024-05-05 07:52] VITALS: BP 141/78
[2024-05-05] MEDS: MUCINEX 600 MG PO ×2 (09:18→19:40)
[2024-05-05] MEDS: ELIQUIS 2.5 MG PO ×2 (09:18→19:40)
[2024-05-05] MEDS: TOPROL XL 50 MG PO (09:18)
[2024-05-05] MEDS: PEPCID 20 MG PO (09:18)
[2024-05-05] MEDS: PROZAC 10 MG PO (09:18)
[2024-05-05] MEDS: CLARITIN 10 MG PO (09:18)
--- NOTE | 2024-05-05 12:06 | CM ---
Addendum entered by Ary Moses RN 05/05/24 12:10:
IMM reviewed and placed on chart.
Original Note:
Reviewed the chart notes. Call placed to [facility] to check auth status. Still pended. Attempted to speak with a national sales representative, the call center is temporarily unavailable. CM continues to be available to patient/family and is monitoring medical
plan for needs at discharge.
Plan: Discharge to SNF/rehab ([facility]) once auth obtained.
--- NOTE | 2024-05-05 14:24 | W.PN.HOSP.TC ---
Today's Communication/Plan
-
Stable respiratory status
[facility] and insurance authorization.
Assessment / Plan
Assessment / Plan
84-year-old male with resident assisted living, brought in for mental status change which is likely secondary to hypoxic spectra failure and COVID pneumonia.
1. Acute hypoxic respiratory insufficiency
COVID 19 viral infection in immunocompromised patient
-Chest x-ray images reviewed
-Currently patient on Paxlovid therapy, last dose tomorrow evening
-Symptomatic care for COVID-related cough/fever
-Procalcitonin negative, patient has been taken off of antibiotics
-Has been off Jaypirca since admission
-Minor elevation in WBC secondary to steroids likely
2. Diarrhea - chronic?
-According to his son he has been having incontinent for more than 1 year been worked out as an outpatient no reason identified.
-Cdiff/stool culture negative
-Encourage oral hydration
-Imodium prn for symptomatic care
3. Waldenstrom Macroglobulinemia
-Repeat SPEP result is pending.
-Pattern Scratcher following
-Oral med/Pirtobrutinib will be restarted on discharge
4. History of A-fib
-anticoagulated with Eliquis 2.5 twice daily we will continue.
5. Chronic anemia
-Stable likely secondary to Waldenstr�m macroglobulinemia
6. Generalized weakness
-COVID-related and needs rehab placement
7. LUE swelling
-patient state of being chronic? lymphedema?
-LUE venous doppler in was negative for clot
History of sick sinus syndrome post pacemaker
BPH
GERD
History of CVA
History of TURP
Tonsillectomy
CODE STATUS as discussed with the son is DNR
DVT prophylaxis Lovenox
Anticipated Discharge: Within 24 hours
Subjective/Interval History
-
Date of Service: May 05, 2024
Objective Data
-
Vital Signs:
Vital Signs
Temp Pulse Resp BP Pulse Ox
97.8 F 66 15 141/78 95
05/05/24 07:52 05/05/24 09:18 05/05/24 07:52 05/05/24 09:18 05/05/24 07:52
I&O
05/04/24 05/05/24 05/06/24
06:59 06:59 06:59
Intake Total 560 / 560 660 / 660
Balance 560 / 560 660 / 660
Physical Exam
-
General: No Apparent Distress and Comfortable
HEENT: Negative Oxygen
Respiratory: Clear to Auscultation
Cardiac: Regular Rhythm and S1/S2; Negative Murmur or Rub
GI: Soft, Nontender and Nondistended
Musculoskeletal: No Edema
Neuro: Awake, Alert, Oriented, No Motor Deficits and Nonfocal/Grossly Intact
Psych: Calm
[2024-05-05 15:53] VITALS: BP 147/89; PULSE 73; O2SAT 98
[2024-05-05 16:10] VITALS: BP 147/89
[2024-05-05 23:47] VITALS: BP 161/91
[2024-05-06 07:35] VITALS: BP 136/95
[2024-05-06] MEDS: TOPROL XL 50 MG PO (09:51)
[2024-05-06] MEDS: PROZAC 10 MG PO (09:51)
[2024-05-06] MEDS: MUCINEX 600 MG PO ×2 (09:51→20:21)
[2024-05-06] MEDS: ELIQUIS 2.5 MG PO ×2 (09:51→20:21)
[2024-05-06] MEDS: CLARITIN 10 MG PO (09:51)
--- NOTE | 2024-05-06 09:51 | CM ---
Addendum entered by Ary Moses RN 05/06/24 14:01:
Per [employer], referral is in process of being reviewed.
Original Note:
Reviewed the chart notes. Attempted eight times yesterday to fax clinicals and once this morning. With assistance of the administrative liaison, clinicals uploaded in [employer] this morning.
[2024-05-06] MEDS: PEPCID 20 MG PO (09:52)
--- NOTE | 2024-05-06 13:52 | W.PN.HOSP.TC ---
Today's Communication/Plan
-
Pending placement to alf facility.
Assessment / Plan
Assessment / Plan
84-year-old male with resident assisted living, brought in for mental status change which is likely secondary to hypoxic spectra failure and COVID pneumonia.
1. Acute hypoxic respiratory insufficiency
COVID 19 viral infection in immunocompromised patient
-Chest x-ray images reviewed
-Currently patient on Paxlovid therapy, last dose tomorrow evening
-Symptomatic care for COVID-related cough/fever
-Procalcitonin negative, patient has been taken off of antibiotics
-Has been off Jaypirca since admission
-Minor elevation in WBC secondary to steroids likely
2. Diarrhea - chronic?
-According to his son he has been having incontinent for more than 1 year been worked out as an outpatient no reason identified.
-Cdiff/stool culture negative
-Encourage oral hydration
-Imodium prn for symptomatic care
3. Waldenstrom Macroglobulinemia
-Repeat SPEP result is pending.
-Beater Dumper following
-Oral med/Pirtobrutinib will be restarted on discharge
4. History of A-fib
-anticoagulated with Eliquis 2.5 twice daily we will continue.
5. Chronic anemia
-Stable likely secondary to Waldenstr�m macroglobulinemia
6. Generalized weakness
-COVID-related and needs rehab placement
7. LUE swelling
-patient state of being chronic? lymphedema?
-LUE venous doppler in was negative for clot
History of sick sinus syndrome post pacemaker
BPH
GERD
History of CVA
History of TURP
Tonsillectomy
CODE STATUS as discussed with the son is DNR
DVT prophylaxis Lovenox
Anticipated Discharge: Within 24 hours
Subjective/Interval History
-
Date of Service: May 06, 2024
Objective Data
-
Vital Signs:
Vital Signs
Temp Pulse Resp BP Pulse Ox
98.0 F 75 16 136/95 96
05/06/24 07:35 05/06/24 07:35 05/06/24 07:35 05/06/24 07:35 05/06/24 07:35
I&O
05/05/24 05/06/24 05/07/24
06:59 06:59 06:59
Intake Total 660 / 660 480 / 480
Balance 660 / 660 480 / 480
Physical Exam
-
General: No Apparent Distress and Comfortable
HEENT: Negative Oxygen
Respiratory: Clear to Auscultation
Cardiac: Regular Rhythm and S1/S2; Negative Murmur or Rub
GI: Soft, Nontender and Nondistended
Musculoskeletal: No Edema
Neuro: Awake, Alert, Oriented, No Motor Deficits and Nonfocal/Grossly Intact
Psych: Calm
[2024-05-06 15:20] VITALS: BP 108/71
[2024-05-06 15:30] VITALS: BP 108/71
[2024-05-06 22:56] VITALS: BP 147/73
[2024-05-07 07:40] VITALS: BP 141/77
--- NOTE | 2024-05-07 08:18 | CM ---
Addendum entered by Ary Moses RN 05/07/24 10:04:
CM updated the patient's son via telephone.
Plan: Discharge to [facility].
Call report to: [phone]
Fax report to: [phone]
Medical necessity and transport forms on chart.
Addendum entered by Ary Moses RN 05/07/24 09:53:
IMM reviewed and placed on chart.
Original Note:
Reviewed the chart notes. Auth received for 8 days NRD 05/19; [id number]. Message left with [facility] admission office. Awaiting call back.
[2024-05-07] MEDS: ELIQUIS 2.5 MG PO (09:36)
[2024-05-07] MEDS: PEPCID 20 MG PO (09:36)
[2024-05-07] MEDS: CLARITIN 10 MG PO (09:36)
[2024-05-07] MEDS: PROZAC 10 MG PO (09:36)
[2024-05-07] MEDS: MUCINEX 600 MG PO (09:36)
[2024-05-07] MEDS: TOPROL XL 50 MG PO (09:36)
[2024-05-07 10:00] VITALS: BP 119/80; PULSE 92; O2SAT 96
[2024-05-07 15:30] VITALS: BP 140/80
--- NOTE | 2024-05-07 16:29 | PTCARENOTE ---
nurse attempted to call report to number attached by case management. front desk administrator said they were not picking the phone up on the floor.
--- NOTE | 2024-05-08 10:24 | W.DS.TRANS ---
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
-
Discharge Instructions:
Discharge Diagnosis/Procedures COVID-!9 infection
Acute hypoxic respiratory insufficiency.
Waldenstr�m's macroglobulinemia.
Paroxysmal atrial fibrillation
Diet Regular
Instructions:
Stand-Alone Forms:
Changes to Home Medications: No
Discharge Medications:
DC Medications w/original date entered in [employer]
famotidine 40 mg tablet 40 mg PO DAILY Gastrointestinal issue 08/29/12
L.acidophilus-L.plantarum-B.animalis-B.longum 2 billion cell capsule (Probiotic Acidophilus Beads) 1 cap PO DAILY Gastrointestinal Issue 04/29/24
apixaban 2.5 mg tablet (Eliquis) 2.5 mg PO BID Blood Clot Prevention/Tx 04/29/24
doxycycline hyclate 100 mg capsule 100 mg PO BID Infection 04/29/24
fluoxetine 10 mg tablet 10 mg PO DAILY Depression 04/29/24
guaifenesin 100 mg/5 mL oral liquid (Chest Congestion Relief) 200 mg PO Q6HPRN PRN cough 04/29/24
loperamide 2 mg tablet (Anti-Diarrheal (loperamide)) 2 mg PO QIDPRN PRN diarrhea 04/29/24
loratadine 10 mg tablet 10 mg PO DAILY Allergies 04/29/24
metoprolol succinate 50 mg tablet,extended release 24 hr 50 mg PO DAILY Heart Failure 04/29/24
pirtobrutinib 100 mg tablet (Jaypirca) 200 mg PO DAILY@0600 Cancer 04/29/24
Home Medication Changes
Pending Results: No
== END 2024-05-07 17:09 | DRG 177 ==
LOC: 2 NORTH 21:35
PROVIDERS: Hospitalist; Physician Assistant; ADMITTING PHYSICIAN Hospitalist; ATTENDING PHYSICIAN Internal Medicine; CONSULT PHYSICIAN Student in an Organized Health Care Education/Training Program; EMERGENCY PHYSICIAN Emergency Medicine; OTHER PHYSICIAN Internal Medicine Hematology & Oncology
PROC: 3E0333Z Introduction of Anti-inflammatory into Peripheral Vein, Percutaneous Approach (ICD-10-PCS; 2024-04-29)
DX: U07.1 COVID-19 (principal); J12.82 Pneumonia due to coronavirus disease 2019; J96.01 Acute respiratory failure with hypoxia; D84.821 Immunodeficiency due to drugs; F02.83 Dementia in other diseases classified elsewhere, unspecified severity, with mood disturbance; I48.0 Paroxysmal atrial fibrillation; I49.5 Sick sinus syndrome; Z66 Do not resuscitate; C88.0 Waldenstrom macroglobulinemia; K21.9 Gastro-esophageal reflux disease without esophagitis; N40.0 Benign prostatic hyperplasia without lower urinary tract symptoms; D63.0 Anemia in neoplastic disease; G30.9 Alzheimer's disease, unspecified; D47.2 Monoclonal gammopathy; T45.1X5A Adverse effect of antineoplastic and immunosuppressive drugs, initial encounter; E78.5 Hyperlipidemia, unspecified; I10 Essential (primary) hypertension; K52.9 Noninfective gastroenteritis and colitis, unspecified; Z86.73 Personal history of transient ischemic attack (TIA), and cerebral infarction without residual deficits; Z79.624 Long term (current) use of inhibitors of nucleotide synthesis; Z79.01 Long term (current) use of anticoagulants; Z79.899 Other long term (current) drug therapy; Z91.199 Patient's noncompliance with other medical treatment and regimen due to unspecified reason; Z95.0 Presence of cardiac pacemaker
CPT/HCPCS: 70450; 71046; 80048; 80053; 81003; 81015; 82784; 83521; 83605; 84145; 84155; 84165; 84484; 85025; 85027; 86334; 87045; 87046; 87070; 87086; 87324; 87427; 87449; 87502; 87811; 87899; 92526; 92610; 93005; 97110; 97116; 97163; 97167; 97530; 97535; 99285